=== PATIENT | female | born 2000 | race African-American/Black ===

== ENCOUNTER 2023-10-19 09:50 | Outpatient (REF) | payer MEDICAID, SELFPAY ==
[2023-10-19 15:13] LABS: Vitamin D 25-OH Total 19.2 ng/mL (>30)
== END 2023-10-19 09:51 | disposition home or self-care (01) ==
LOC: HO.CHCLDS 09:50
PROVIDERS: Visit Provider Pediatrics
DX: Z12.4 Encounter for screening for malignant neoplasm of cervix (principal); E55.9 Vitamin D deficiency, unspecified
CPT/HCPCS: 36415; 82306; 88142

== ENCOUNTER 2024-04-25 17:34 | Outpatient (REF) | payer MEDICAID, SELFPAY ==
[2024-04-25 18:27] LABS: Influenza A PCR NEGATIVE (Negative); Influenza B PCR NEGATIVE (Negative); Resp Syncy Virus RNA Qual PCR NEGATIVE (Negative); SARS COV2 PCR INHOUSE NEGATIVE (Negative)
== END 2024-04-25 17:35 | disposition home or self-care (01) ==
LOC: HO.HHCLNP 17:34
PROVIDERS: Visit Provider Pediatrics
DX: B34.9 Viral infection, unspecified (principal)
CPT/HCPCS: 0241U; 87070; 87147

== ENCOUNTER 2024-06-27 | Outpatient (REF) | payer MEDICAID, SELFPAY | END 2024-06-27 00:01 | disposition home or self-care (01) | LOC: HO.HHCLNP | PROVIDERS: Visit Provider Internal Medicine | DX: R30.0 Dysuria (principal) | CPT/HCPCS: 87086 ==

== ENCOUNTER 2024-06-27 12:52 | Emergency (ER) | payer MEDICAID, SELFPAY ==
--- NOTE | ~2024-06-27 | CT_ITS ---
EXAMINATION: CT ABDOMEN AND PELVIS WITH CONTRAST CLINICAL INFORMATION: Right lower quadrant tenderness COMPARISON: None available. TECHNIQUE: Multidetector volumetric images were obtained from the superior aspect of the liver through the pubic symphysis following administration 85 mL of Omnipaque 350 intravenous contrast. Sagittal and coronal reformatted images were obtained on the technologist's workstation. Oral contrast: No This CT examination was performed using dose optimization techniques as appropriate, variously including the following: *Automated exposure control *Adjustment of mA and/or kV according to patient size (this includes techniques or standardized protocols for targeted exams where dose is matched to indication/reason for exam; i.e. extremities or head) *Use of iterative reconstruction technique DLP: 1119 mGy-cm FINDINGS: CUSTOM BIKE BUILDER: Nonobstructive bowel pattern. LUNG BASES: Left base atelectasis. LIVER, GALLBLADDER, AND BILIARY TREE: The liver is normal in size, shape, and attenuation. No focal hepatic lesion or biliary ductal dilatation is present. The gallbladder is unremarkable with no evidence of radiopaque gallstones, gallbladder wall thickening, or obvious pericholecystic inflammatory changes. PANCREAS: Unremarkable. SPLEEN: Unremarkable. ADRENAL GLANDS: Unremarkable. KIDNEYS AND URETERS: The kidneys are normal in size, shape, and attenuation. No hydronephrosis, hydroureter, or calculi seen. No perinephric stranding. BLADDER: Totally decompressed. GASTROINTESTINAL TRACT: Small hiatal hernia with question tiny air-fluid level. Decompressed stomach. Nonobstructive bowel pattern. Unremarkable terminal ileum and appendix. No right lower quadrant inflammatory changes. No colonic pathology recognized. ABDOMINAL WALL: Moderately large fat filled umbilical hernia. LYMPH NODES: Nonspecific right lower quadrant lymph nodes. VASCULAR: Unremarkable. PELVIC VISCERA: Evaluation of the pelvis limited without oral contrast opacification of bowel loops. Ovarian cyst/follicles not excluded bilaterally. No free fluid. OSSEOUS STRUCTURES: Unremarkable. CT/CT abdomen pelvis w IV con IMPRESSION: 1. No acute intra-abdominal or pelvic pathology. 2. Moderately large fat filled umbilical hernia. Fleischner guidelines were followed. Electronically signed by: Janis Nevarez MD 06/27/2024 03:55 PM EDT
--- NOTE | ~2024-06-27 | US_ITS ---
EXAMINATION: US PELVIS CLINICAL INFORMATION: Right lower quadrant pain COMPARISON: CT abdomen and pelvis June 27, 2024 TECHNIQUE: Ultrasound of the pelvis is performed using both transabdominal and transvaginal transducers along with Doppler. Transvaginal imaging is performed due to inadequate visualization transabdominally. FINDINGS: Uterus: The uterus is retroverted and measures 6.5 x 3.4 x 3.7 cm. The double wall endometrial thickness is 4 mm. The uterus is smooth in contour and has normal myometrial echogenicity. No visible fibroid. Adnexa: Both ovaries are visualized. There is normal color flow to the adnexa. There is no ovarian torsion. There is no pelvic ascites or fluid collection. Right ovary measures 4. 2 x 2 by 3.3 cm. Volume 14.3 mm. Left ovary measures 5.2 x 3.7 x 3.9 cm. Volume 40 mm. Hemorrhagic cyst noted measuring 2.5 x 2.2 0.7 cm. US/US pelvic and transvaginal IMPRESSION: No evidence of ovarian torsion. Hemorrhagic cyst noted in the left adnexa measuring 2.5 x 2.2 x 0.7 cm. Electronically signed by: Richard Saba MD 06/27/2024 07:56 PM EDT RP
--- NOTE | ~2024-06-27 | US_ITS ---
EXAMINATION: US PELVIS CLINICAL INFORMATION: Right lower quadrant pain COMPARISON: CT abdomen and pelvis June 27, 2024 TECHNIQUE: Ultrasound of the pelvis is performed using both transabdominal and transvaginal transducers along with Doppler. Transvaginal imaging is performed due to inadequate visualization transabdominally. FINDINGS: Uterus: The uterus is retroverted and measures 6.5 x 3.4 x 3.7 cm. The double wall endometrial thickness is 4 mm. The uterus is smooth in contour and has normal myometrial echogenicity. No visible fibroid. Adnexa: Both ovaries are visualized. There is normal color flow to the adnexa. There is no ovarian torsion. There is no pelvic ascites or fluid collection. Right ovary measures 4. 2 x 2 by 3.3 cm. Volume 14.3 mm. Left ovary measures 5.2 x 3.7 x 3.9 cm. Volume 40 mm. Hemorrhagic cyst noted measuring 2.5 x 2.2 0.7 cm. US/US pelvic ovarian doppler IMPRESSION: No evidence of ovarian torsion. Hemorrhagic cyst noted in the left adnexa measuring 2.5 x 2.2 x 0.7 cm. Electronically signed by: Richard Saba MD 06/27/2024 07:56 PM EDT
--- NOTE | 2024-06-27 13:39 | ED.ABDPAIN ---
HPI - Abdominal Pain General Chief Complaint: Abdominal Pain Stated Complaint: Ruptured appendix? sent by walk in Time Seen by Provider: 06/27/24 13:48 History of Present Illness ED Provider: Jaime HPI narrative: 23 y/o F patient; without significant PMH; presents from Urgent Care with report of RLQ abdominal pain associated with nausea. She states it began as umbilical pain that moved to the RLQ. She has been experiencing it since Wednesday (06/24/2024). She denies associated: vomiting/diarrhea, fever or chills, chest pain, SOB, cough/congestion. No known sick contacts. No prior surgeries of abdomen. She has never been sexually active. Last period was 2.5 weeks ago and normal. UA performed in urgent care and unremarkable. Related Data Allergies Allergy/AdvReac Type Severity Reaction Status Date / Time Unable to Assess Allergy Verified 06/27/24 13:42 Review of Systems Review of Systems Yes all other systems are reviewed and are negative Denies Sensory deficit (Neuro) [facility] [place] Past Medical History Attestation statement: The following information was validated with the patient. Source: old records reviewed Social History Social History Smoked in Last 30 Days: No Advance Directives: No Do you have a plan to hurt others: No Plan Patient : No Physical Exam ED Vital Signs: Vital Signs - 24 hr 06/27/24 13:41 06/27/24 18:08 Temperature 98.7 F 98.4 F Pulse Rate 68 60 Respiratory Rate 18 16 Blood Pressure 125/85 112/76 Pulse Oximetry 100 99 Oxygen Delivery Method Room Air Room Air BMI result Body Mass Index 45.5 Patient is afebrile and hemodynamically stable Const General: cooperative Orientation/consciousness: patient oriented x3 HENMT Head: Yes normal to inspection and Yes atraumatic Eyes General: appearance normal, both eyes and all related structures Pupils: Equal, round and reactive pupils present Neck Neck: Yes normal visual inspection, Yes full ROM, Yes supple and No tender Chest Chest palpation & inspection: normal inspection of the chest and normal palpation of entire chest wall Resp Effort & Inspection: normal respiratory effort, able to speak in complete sentences and no respiratory distress Auscultation: clear to auscultation bilaterally Cardio Rate: regular rate Rhythm: regular rhythm Peripheral pulses: Peripheral pulses 2+ throughout GI Other: RLQ tenderness Inspection: Yes normal to inspection, No Abdominal wall edema and No distended Palpation (GI): Soft to palpation, not firm, Tenderness to palpation present (GI), no guarding and not rigid Auscultation: normal bowel sounds Back/Spine/Pelvis Back: No back tenderness Neuro General: patient oriented x3 Cranial nerves: Yes Equal, round and reactive pupils present Motor exam (neuro): 5/5 motor strength present throughout Sensory Exam: No Sensory deficit (Neuro) Course Course Course Narrative: This is a Rapid Medical Examination (RME) performed by Bridgette Tong PA-C in triage. Full HPI, ROS, assessment and treatment plan per primary provider in the Main ED. 23 yo female with no medical problems presents to the ER for evaluation of abdominal pain, sent in by the urgent care clinic to rule out appendicitis.. She reports an intense periumbilical abdominal pain that started 4 days ago, has since migrated to the right lower quadrant and is dull and aching in nature. She endorses nausea with subjective fever and chills. Last menstrual period was 2.5 weeks ago. Abd is soft in triage with tenderness to deep palpation of the RLQ. Plan: Labs, urine, CT scan to rule out appendicitis Reevaluation(s) Reevaluation #1: Patient is afebrile and hemodynamically stable. Reviewed triage work up. COVID negative. Labs reviewed. No leukocytosis. Providing 1L IVF, Zofran 4mg IV, and Tylenol 1g IV. CT Abdomen/Pelvis unremarkable. Added US Pelvis. US with no evidence of ovarian torsion. Patient is comfortable at this time. Possible MSK versus viral illness. She is tolerating PO without difficulty. Plan: Discharge to home with PCP follow up Return precautions given Medical Decision Making Lab Data 06/27/24 14:05 06/27/24 14:05 Labs: Lab Results 06/27/24 Range/Units 14:05 WBC 7.3 (4.8-10.8) X10*3/uL RBC 5.08 (4.20-5.50) X10*6/uL Hgb 13.8 (12.0-16.0) g/dl Hct 41.1 (37.0-47.0) % MCV 80.9 (80.0-98.0) fL MCH 27.2 (27.0-33.0) pg MCHC 33.6 (31.0-35.0) g/dl RDW 14.5 (11.0-16.0) % Plt Count 415 H (160-400) X10*3/uL MPV 9.1 L (9.4-12.3) fL Immature Gran % (Auto) 0.4 (0.0-0.4) % Neut % (Auto) 60.5 (45-73) % Lymph % (Auto) 29.7 (20-40) % [place] % (Auto) 7.6 (2-11) % Eos % (Auto) 1.2 (0-4) % Baso % (Auto) 0.6 (0-2) % Lymph # (Auto) 2.2 (1.2-4.9) X10*3/uL [place] # (Auto) 0.6 (0.1-1.2) X10*3/uL Eos # (Auto) 0.1 (0.0-0.4) X10*3/uL Baso # (Auto) 0.0 (0.0-0.2) X10*3/uL Abs Immat Gran (auto) 0.03 (0.00-0.03) X10*3/uL Absolute Neuts (auto) 4.4 (2.0-8.3) x10*3/uL Absolute Nucleated RBC 0.000 (0.0-0.012) X10*3/uL Nucleated RBC % (auto) 0.0 (0.0-0.2) /100WBC Sodium 139 (135-145) mmol/L Potassium 3.7 (3.3-5.1) mmol/L Chloride 108 (96-108) mmol/L Carbon Dioxide 27 (22-29) mmol/L Anion Gap 8 L (12-20) BUN 10 (9-16) mg/dL Creatinine 0.77 (0.5-1.4) mg/dL Estim Creat Clear Calc 142.4 Estimated GFR > 60 Random Glucose 90 (60-115) mg/dL Lactic Acid 0.6 (0.5-2.0) mmol/L Calcium 9.4 (8.4-10.2) mg/dL Magnesium 1.9 (1.6-2.6) mg/dL Total Bilirubin 0.7 (0.0-1.0) mg/dL Direct Bilirubin 0.2 (0.0-0.5) mg/dL AST 22 (5-31) U/L ALT 17 (0-31) U/L Alkaline Phosphatase 111 (39-117) U/L Total Protein 8.0 (6.5-8.0) g/dL Albumin 4.1 (3.5-5.0) g/dL Lipase 22 (8-78) U/L Beta HCG, Quant < 2 mIU/mL Radiology Impression Discussion of test interpretation with radiology: I have reviewed the radiologist's reading. Radiologist Impression: EXAMINATION: CT ABDOMEN AND PELVIS WITH CONTRAST CLINICAL INFORMATION: Right lower quadrant tenderness COMPARISON: None available. TECHNIQUE: Multidetector volumetric images were obtained from the superior aspect of the liver through the pubic symphysis following administration 85 mL of Omnipaque 350 intravenous contrast. Sagittal and coronal reformatted images were obtained on the technologist's workstation. Oral contrast: No This CT examination was performed using dose optimization techniques as appropriate, variously including the following: *Automated exposure control *Adjustment of mA and/or kV according to patient size (this includes techniques or standardized protocols for targeted exams where dose is matched to indication/reason for exam; i.e. extremities or head) *Use of iterative reconstruction technique DLP: 1119 mGy-cm FINDINGS: BLACK ASH BURNER OPERATOR: Nonobstructive bowel pattern. LUNG BASES: Left base atelectasis. LIVER, GALLBLADDER, AND BILIARY TREE: The liver is normal in size, shape, and attenuation. No focal hepatic lesion or biliary ductal dilatation is present. The gallbladder is unremarkable with no evidence of radiopaque gallstones, gallbladder wall thickening, or obvious pericholecystic inflammatory changes. PANCREAS: Unremarkable. SPLEEN: Unremarkable. ADRENAL GLANDS: Unremarkable. KIDNEYS AND URETERS: The kidneys are normal in size, shape, and attenuation. No hydronephrosis, hydroureter, or calculi seen. No perinephric stranding. BLADDER: Totally decompressed. GASTROINTESTINAL TRACT: Small hiatal hernia with question tiny air-fluid level. Decompressed stomach. Nonobstructive bowel pattern. Unremarkable terminal ileum and appendix. No right lower quadrant inflammatory changes. No colonic pathology recognized. ABDOMINAL WALL: Moderately large fat filled umbilical hernia. LYMPH NODES: Nonspecific right lower quadrant lymph nodes. VASCULAR: Unremarkable. PELVIC VISCERA: Evaluation of the pelvis limited without oral contrast opacification of bowel loops. Ovarian cyst/follicles not excluded bilaterally. No free fluid. OSSEOUS STRUCTURES: Unremarkable. CT/CT abdomen pelvis w IV con IMPRESSION: 1. No acute intra-abdominal or pelvic pathology. 2. Moderately large fat filled umbilical hernia. Fleischner guidelines were followed. Electronically signed by: Janis Nevarez MD 06/27/2024 03:55 PM EDT EXAMINATION: US PELVIS CLINICAL INFORMATION: Right lower quadrant pain COMPARISON: CT abdomen and pelvis June 27, 2024 TECHNIQUE: Ultrasound of the pelvis is performed using both transabdominal and transvaginal transducers along with Doppler. Transvaginal imaging is performed due to inadequate visualization transabdominally. FINDINGS: Uterus: The uterus is retroverted and measures 6.5 x 3.4 x 3.7 cm. The double wall endometrial thickness is 4 mm. The uterus is smooth in contour and has normal myometrial echogenicity. No visible fibroid. Adnexa: Both ovaries are visualized. There is normal color flow to the adnexa. There is no ovarian torsion. There is no pelvic ascites or fluid collection. Right ovary measures 4. 2 x 2 by 3.3 cm. Volume 14.3 mm. Left ovary measures 5.2 x 3.7 x 3.9 cm. Volume 40 mm. Hemorrhagic cyst noted measuring 2.5 x 2.2 0.7 cm. US/US pelvic ovarian doppler IMPRESSION: No evidence of ovarian torsion. Hemorrhagic cyst noted in the left adnexa measuring 2.5 x 2.2 x 0.7 cm. Electronically signed by: Richard Saba MD 06/27/2024 07:56 PM EDT Medications Administered Discontinued Medications Generic Name Dose Route Start Last Admin Trade Name Freq PRN Reason Stop Dose Admin Acetaminophen 1,000 mg in 100 mls @ 400 mls/hr 06/27/24 14:29 06/27/24 15:44 Ofirmev IV 06/27/24 14:43 Infused ONCE ONE Infusion Sodium Chloride 1,000 mls @ 999 mls/hr 06/27/24 14:30 06/27/24 16:00 Ns IV 06/27/24 15:30 Infused .Q1H1M ANITRA Infusion Iohexol 100 ml 06/27/24 14:49 06/27/24 14:49 Iohexol 350 Mg/Ml 100 Ml Infus..Btl IV 06/27/24 14:50 85 ml ONCE ONE Administration Ondansetron HCl 4 mg 06/27/24 14:29 06/27/24 14:52 Ondansetron Hcl 4 Mg/2 Ml Vial IVPUSH 06/27/24 14:30 4 mg ONCE ONE Administration Discharge Plan Discharge Clinical Impression: Abdominal pain Patient Disposition: Home, Self-Care Instructions: Abdominal Pain (ED) Additional Instructions: As we discussed, you were seen today for abdominal pain. Your labs, CT Abdomen/Pelvis, and US Pelvis were reassuring. Please call your PCP to make an appointment to be seen in the next 1 - 2 days for a re-evaluation and to discuss your recent ED visit. Return to the emergency department for: Worsening abdominal pain Fever Print Language: Khmer
[2024-06-27 13:41] VITALS: BP 125/85; PULSE 68; RESP 18; TEMP 37.1; O2SAT 100; BMI 45.5
--- OUTSIDE RECORDS SUMMARY | 2024-06-27 13:59 | XMS_ITS | Continuity of Care Document ---
Author Organization [facility] Address [address] [place] [address]- Care Team Providers Care Senior Accounting Clerk Name Role Phone Manuela HERNANDEZ Linda Milligan Primary Care Physician Encounter [facility] Date(s): 07/10/22 - 08/09/22 [facility] [address] [place] [id number]- Allergies, Adverse Reactions, Alerts No Known Medication Allergies Immunizations Given and Recorded Vaccine Date Status Refusal Reason influenza virus vaccine, inactivated 09/15/21 Give n influenza virus vaccine, inactivated 10/29/20 Give n influenza virus vaccine, inactivated 08/14/19 Give n influenza virus vaccine, inactivated 08/02/17 Give n influenza virus vaccine, inactivated 11/16/16 Give n influenza virus vaccine, inactivated 1 08/19/15 Gi mekhi influenza virus vaccine, inactivated 06/20/03 Bryan rded SARS-CoV-2 (COVID-19) mRNA BNT-162b2 vac 07/04/21 Recorded SARS-CoV-2 (COVID-19) mRNA BNT-162b2 vac 06/13/21 Recorded Varicella Virus Vaccine 08/14/19 Given Varicella Virus Vaccine 10/08/05 Recorded Varicella Virus Vaccine 06/20/03 Recorded Meningococcal Conjugate Vaccine 08/14/19 Given Meningococcal Conjugate Vaccine 2 05/25/16 Given Hepatitis A Pediatric Vaccine 08/14/19 Given Hepatitis A Pediatric Vaccine 04/12/14 Recorded Hepatitis A Pediatric Vaccine 06/20/03 Recorded Human Papillomavirus Vaccine 3 10/16/15 Given Gardasil (oldterm) 04/12/14 Recorded Gardasil (oldterm) 09/11/13 Recorded tetanus/diphtheria/pertussis, acel(Tdap) 09/11/13 Recorded Poliovirus Vaccine, Inactivated 01/20/07 Recorded Poliovirus Vaccine, Inactivated 02/09/06 Recorded Poliovirus Vaccine, Inactivated 12/08/05 Recorded Poliovirus Vaccine, Inactivated 10/08/05 Recorded Measles/Mumps/Rubella Virus Vaccine 01/20/07 Recor ded Measles/Mumps/Rubella Virus Vaccine 10/08/05 Recor ded diphtheria/tetanus/pertussis, acel(DTaP) 08/19/06 Recorded diphtheria/tetanus/pertussis, acel(DTaP) 02/09/06 Recorded diphtheria/tetanus/pertussis, acel(DTaP) 12/08/05 Recorded diphtheria/tetanus/pertussis, acel(DTaP) 10/08/05 Recorded hepatitis B pediatric vaccine 02/09/06 Recorded hepatitis B pediatric vaccine 12/08/05 Recorded hepatitis B pediatric vaccine 10/08/05 Recorded pneumococcal 7-valent vaccine 12/08/05 Recorded pneumococcal 7-valent vaccine 10/08/05 Recorded Haemophilus B conjugate (HbOC) vaccine 10/08/05 Re corded 1Result Comment: [08/19/2015] Ordered by Manuela 2Result Comment: [05/25/2016] ORDERED BY DR. CALRK 3Result Comment: [10/16/2015] ORDERED BY DR. CLARK Problem List Condition Confirmation Course Effective Dates Status Health St atus Informant Obese Confirmed Active [facility] Confirmed Active Social History Social History Type Response Smoking Status Never smoker; Tobacc o user in household: No entered on: 04/17/15 Sex Patient Care team information Personnel Name: Linda Clark DO Address: Address: [address] [place] [address]
--- OUTSIDE RECORDS SUMMARY | 2024-06-27 13:59 | XMS_ITS | Continuity of Care Document ---
Author Organization [facility] Address [address] [place] [address]- Care Team Providers Care Applications Instructor Name Role Phone Lisa Clark DOkasey Milligan Primary Care Physician Encounter [facility] Date(s): 05/10/23 - 05/11/[address] [address]- Discharge Disposition: A-D/C Home Attending Physician: Cady Corrales MD Admitting Physician: Cady Corrales MD Referring Physician: Not on Staff, Referring MD Allergies, Adverse Reactions, Alerts No Known Medication [...] Papillomavirus Vaccine 3 10/16/15 Given Gardasil (oldterm) 7/3/14 Recorded Gardasil (oldterm) 09/11/13 Recorded tetanus/diphtheria/pertussis, acel(Tdap) [...] Manuela 2Result Comment: [05/25/2016] ORDERED BY DR. CLARK 3Result Comment: [10/16/2015] ORDERED BY DR. CLARK Medications Ketorolac Inj 15 mg, Injection, IV Push Slowly, Once, PRN for Other, pain, STAT, 05/11/23 0:22:00 EDT Start Date: 05/11/23 Stop Date: 05/11/23 Status: Completed Vitamin D2 By Mouth, 0 Refills, Maintenance, 05/10/23 20:19:00 EDT, Partial fill upon patient request if the prescription is for a schedule II opioid drug. Start Date: 05/10/23 Status: Ordered Problem List Condition Confirmation Course Effective Dates Status Health St atus Informant Obese Confirmed Active [facility] Confirmed Active Results Orders for Microbiology Reports Name Date Group A Strep Screen and Culture 05/10/23 Microbiology Reports TEST:Group A Strep Screen and Culture STATUS:Unauthenticated BODY SITE: SOURCE:THROAT COLLECTED DATE/TIME:05/10/23 8:45 PM Group A Strep Screen and Culture SPECIMEN DESCRIPTION : THROAT SWAB SPECIAL REQUESTS : NONE DIRECT EXAM : RAPID GROUP A RESULT IS NEGATIVE, REFER TO CULTURE RESULT. REPORT STATUS : PRELIMINARY REPORT Vital Signs Most recent to oldest [Reference Range]: 1 2 3 Height 159 cm (05/11/23 4:51 AM) 159 cm (05/11/23 3:27 AM) 159 cm (05/11/23 12:07 AM) Weight 116.2 kg (05/10/23 8:18 PM) Oxygen Saturation [94-100 %] 100 % (05/11/23 4:51 AM) 99 % (05/11/23 3:27 AM) 99 % (05/10/23 11:28 PM) Pulse Rate [55-90 bpm] 83 bpm (05/11/23 4:51 AM) 88 bpm (05/11/23 3:27 AM) 97 bpm *H* (05/10/23 11:28 PM) Blood Pressure [90-138/55-84 mm Hg] 125/61mm Hg (05/11/23 4:51 AM) 123/57mm Hg (05/11/23 3:27 AM) 128/80mm Hg (05/10/23 11:28 PM) Respiratory Rate [16-30 br/min] 18 br/min (05/11/23 4:51 AM) 18 br/min (05/11/23 1:10 AM) 18 br/min (05/10/23 8:18 PM) Temperature [96.8-100.4 DegF] 97.9 DegF (05/11/23 3:27 AM) 99.7 DegF (05/11/23 12:07 AM) 99.0 DegF (05/10/23 11:28 PM) Mode of Delivery (Oxygen) Room air (05/11/23 4:51 AM) Room air (05/11/23 3:27 AM) Room air (05/10/23 11:28 PM) Blood pressure sites Arm, left (05/11/23 4:51 AM) Arm, left (05/11/23 3:27 AM) Arm, left (05/10/23 11:28 PM) Temperature Route Temporal (05/11/23 3:27 AM) Oral (05/11/23 12:07 AM) Oral (05/10/23 11:28 PM) Dry Weight 116.2 kg (05/10/23 8:18 PM) Weight Obtained Via Standing scale (05/10/23 8:18 PM) Dry Weight Obtained Via Standing scale (05/10/23 8:18 PM) Social History Social History Type Response Smoking Status Never smoker; Tobacc o user in household: No entered on: 04/17/15 Sex Note * Savanna ORTIZ, Cady Neely: PERFORM Event Display: Patient Education Leaflets Authored Date: [id number] Viral Syndrome (Adult) ?? [id number] Viral Syndrome (Adult) A viral illness may cause many symptoms such as fever. Other symptoms depend on the part of the body that the virus affects. If it settles in your nose, throat, and lungs, it may cause cough, sore throat, congestion, runny nose, headache, earache and other ear symptoms, or shortness of breath. If it settles in your stomach and intestinal tract, it may cause nausea, vomiting, cramping, and diarrhea. Sometimes it causes generalized symptoms like aching all over, feeling tired, loss of energy, or loss of appetite. A viral illness often lasts anywhere from a few days to a few weeks. But sometimes it lasts longer.In some cases, a more serious infection can look like a viral syndrome in the first few days of theillness. You may need another exam and additional tests to know the difference. Watch for the warning signs listed below for when to get medical advice. Home care Follow these guidelines for taking care of yourself at home: ??? If symptoms are severe, rest at home for the first 2 to 3 days. ??? Stay away from cigarette smoke - both your smoke and the smoke from others. ??? You may use [id number]??acetaminophen or ibuprofen for fever, muscle aching, and headache, unless another medicine was prescribed for this. Antibiotics aren't used to treat viral infections. If you have chronic liver or kidney disease or ever had a stomach ulcer or gastrointestinal bleeding, talk with your healthcare provider before using these medicines. No one who is younger than 18 and ill with a fever should take aspirin. It may cause severe disease or . ??? Your appetite may be poor, so a light diet is fine. Prevent dehydration by drinking 8 to 12, 8-ounce glassesof fluids each day. This may include water; orange juice; lemonade; apple, grape, and cranberry juice; clear fruit drinks; electrolyte replacement and sports drinks; and decaffeinated teas and coffee. If you've been diagnosed with a kidney disease, ask your healthcare provider how much and what types of fluids you should drink to prevent dehydration. If you have kidney disease, drinking too much fluid can cause it build up in your body and be dangerous to your health. ??? Gexy-cbp-gzskxmx remedies won't shorten the length of the illness. But they may be helpful for symptoms such as cough, sore throat, nasal and sinus congestion, or diarrhea. Don't use decongestants if you have high blood pressure. ?? Follow-up care Follow up with your healthcare provider if you don't get better over the next week. ?? Call 911 Call 911 if any of these occur: ??? Convulsion ??? Feeling weak, dizzy, or like you are going to faint ??? Chest pain, or more than mild shortness of breath ?? When to get medical advice Call your healthcare provider right away if any of these occur: ??? Cough with lots of colored sputum (mucus) or blood in your sputum ??? Chest pain, shortness of breath, wheezing, or trouble breathing ??? Severe headache; face, neck, or ear pain ??? Severe, constant pain in the lower right side ofyour belly (abdominal) ??? Continued vomiting (can???t keep liquids down) ??? Frequent diarrhea (more than 5 times a day), or blood (red or black color) or mucus in diarrhea ??? Feeling weak, dizzy, or like you are going to faint ??? Extreme thirst ??? Fever of 100.4??F (38??C) or higher, or as directed by your provider ?? Last Reviewed Date: 2021 ?? [id number] [employer]. All rights reserved. This information is not intended as a substitute for professional medical care. Always follow your healthcare professional's instructions. ?? Patient Care team information Care Team Personnel Name: Linda Clark DO Position: S Physician - Primary Care Member Role: PCP Address: Address: [address] [place] [address] [place] [address]- [place] Name: Savanna ORTIZ, Cady Neely Position: [facility] ED Medicine MD Member Role: ED Attending Physician Address: Address: [address] [place] [phone]- [place] Name: Nina Bradley Position: [facility] ED TA [facility] Member Role: Patient Care Provider Name: Kyle Hays RN Position: [facility] ED RN W/OE and Tasks Member Role: Patient Care Provider Care Team Related Persons Name: DAVIDA TIM Address: [address] [address]
--- OUTSIDE RECORDS SUMMARY | 2024-06-27 13:59 | XMS_ITS | Continuity of Care Document ---
Author Organization [facility] Address [address] [place] [address]- Care Team Providers Care Regional Trainer Name Role Phone Linda Clark DO Primary Care Physician Encounter [facility] Date(s): 01/02/21 - 01/09/21 [facility] [address] [place], [place] [address] Encounter Diagnosis Vomiting(Discharge Diagnosis) - 01/02/21 Right upper quadrant pain(Discharge Diagnosis) - 01/02/21 Attending Physician: Maykel Kurtz MD Referring Physician: Linda Clark DO Allergies, Adverse Reactions, Alerts No Known Medication Allergies Immunizations Given and Recorded Vaccine Date Status Refusal Reason influenza virus vaccine, inactivated 10/29/20 Give n influenza virus vaccine, inactivated 08/14/19 Give n influenza virus vaccine, inactivated 08/02/17 Give n influenza virus vaccine, inactivated 11/16/16 Give n influenza virus vaccine, inactivated 1 08/19/15 Gi mekhi influenza virus vaccine, inactivated 06/20/03 Bryan rded Varicella Virus Vaccine 08/14/19 Given Varicella Virus [...] Comment: [10/16/2015] ORDERED BY DR. CLARK Medications multivitamin Multiple Vitamins oral tablet 1 tablet, By Mouth, Daily, women's MVI with Iron, # 90 tablet, 6 Refills, Maintenance, 10/29/20 16:52:00 EST, Tablet, [id number], Partial fill upon patient request if the prescription is for a schedule II opioid drug., 1 tablet By Dede... Start Date: 10/29/20 Status: Ordered Zofran 8 mg oral tablet 1 tablet = 8 mg, By Mouth, Every 8 hours, PRN Nausea & Vomiting, # 10 tablet, 0 Refills, Maintenance, 01/02/21 16:26:00 EDT, Tablet, [id number], Partial fill upon patient requestif the prescription is for a schedule II opioid drug.,... Start Date: 01/02/21 Status: Ordered Problem List Condition Effective Dates Status Health Status Inform ant Obese(Confirmed) Active [facility](Confirmed) Active Diagnosis Diagnosis Type Effective Dates Health Status Cl inical Service Informant Vomiting Discharge Diagnosis 01/02/21 Right upper quadrant pain Discharge Diagnosis 01/02/21 Vital Signs Most recent to oldest [Reference Range]: 1 Height 159 cm (01/02/21 4:07 PM) Weight 108.0 kg (01/02/21 4:07 PM) Oxygen Saturation [94-100 %] 100 % (01/02/21 4:07 PM) Pulse Rate [55-90 bpm] 62 bpm (01/02/21 4:07 PM) Body Mass Index [18.5-24.99] 42.72 *>HHI* (01/02/21 4:07 PM) Blood Pressure [71-110/30-71 mm Hg] 112/ 77mm Hg *H* (01/02/21 4:07 PM) Respiratory Rate [16-30 br/min] 16 br/mi n (01/02/21 4:07 PM) Temperature [96.8-100.4 DegF] 98.4 DegF (01/02/21 4:07 PM) Mode of Delivery (Oxygen) Room air (01/02/21 4:07 PM) Blood pressure sites Arm, right (01/02/21 4:07 PM) Temperature Route Temporal (01/02/21 4:07 PM) Dry Weight 108.0 kg (01/02/21 4:07 PM) Weight Obtained Via Standing scale (01/02/21 4:07 PM) Dry Weight Obtained Via Standing scale (01/02/21 4:07 PM) Social History Social History Type Response Smoking Status Never smoker; Tobacc o user in household: No entered on: 04/17/15 Sex
--- OUTSIDE RECORDS SUMMARY | 2024-06-27 13:59 | XMS_ITS | Continuity of Care Document ---
Author Organization [facility] Address [address] [place] [address]- Care Team Providers Care Heel Nailing Machine Operator Name Role Phone [place] Linda HERNANDEZ Primary Care Physician Encounter [facility] [place] Date(s): 09/14/22 - 10/14/[address] [address]- Allergies, Adverse Reactions, Alerts No Known Medication [...] on: 04/17/15 Sex Patient Care team information Care Team Personnel Name: Linda Clark DO Position: [facility] Primary Care Physician Member Role: PCP Address: Address: [address] [place] [address]- Care Team Related Persons Name: DAVIDA TIM Address: home [address] [place] [address]
--- OUTSIDE RECORDS SUMMARY | 2024-06-27 13:59 | XMS_ITS | Continuity of Care Document ---
Author Organization [facility] Address [address] [place] [address]- Care Team Providers Care Instructor Of Sociology Name Role Phone [place] Linda HERNANDEZ Primary Care Physician Encounter [facility] [place] Date(s): 02/05/21 - 03/07/21 [facility] [address] [place], [place] [address] Attending Physician: Dung Torrez Admitting Physician: Dung Torrez Referring Physician: AdmtrDung Allergies, Adverse Reactions, Alerts No Known Medication [...] 6 Refills, Maintenance, 10/29/20 16:52:00 EST, Tablet, [facility][id number], Partial fill upon patient request if the prescription is for a schedule II opioid drug., 1 tablet By Dede... Start Date: 10/29/20 Status: Ordered Zofran 8 mg oral tablet 1 tablet = 8 mg, By Mouth, Every 8 hours, PRN Nausea & Vomiting, # 10 tablet, 0 Refills, Maintenance, 01/02/21 16:26:00 EDT, Tablet, [facility] #[id number], Partial fill upon patient requestif the prescription is for a schedule II opioid drug.,... Start Date: 01/02/21 Status: Ordered Problem List Condition Effective Dates Status Health Status Inform ant Obese(Confirmed) Active [facility]- [facility](Confirmed) Active Social History Social History Type Response Smoking Status Never smoker; Tobacc o user in household: No entered on: 04/17/15 Sex
--- OUTSIDE RECORDS SUMMARY | 2024-06-27 14:00 | XMS_ITS | Continuity of Care Document ---
Author Organization [facility] Address [address] [place] [address]- Care Team Providers Care Audio Visual Coordinator Name Role Phone Manuela HERNANDEZ Linda Milligan Primary Care Physician Encounter [facility] Date(s): 05/24/23 - 06/23/[address] [address] Attending Physician: Dung Torrez Admitting Physician: AdmtrDung Referring Physician: Admtr, Ar8 Allergies, Adverse Reactions, Alerts No Known Medication [...] Comment: [10/16/2015] ORDERED BY DR. CLARK Medications Vitamin D2 By Mouth, 0 Refills, Maintenance, [...] Primary Care Member Role: PCP Address: Address: [address] [place] [address]- Care Team Related Persons Name: DAVIDA TIM Address: home [address] [place] [address]
--- OUTSIDE RECORDS SUMMARY | 2024-06-27 14:00 | XMS_ITS | Continuity of Care Document ---
Author Organization [facility] Address Unknown Care Team Providers Care Retail Sales Manager Name Role Phone Linda Roy DO Primary Care Physician Encounter [facility] [place] Date(s): 09/01/21 - 10/01/21 [facility] Allergies, Adverse Reactions, Alerts No Known Medication [...] Manuela 2Result Comment: [05/25/2016] ORDERED BY DR. ROY 3Result Comment: [10/16/2015] ORDERED BY DR. ROY Medications multivitamin Multiple Vitamins oral tablet 1 tablet, By Mouth, Daily, women's MVI with Iron, # 90 tablet, 6 Refills, Maintenance, 10/29/20 16:52:00 EST, Tablet, [facility] #[id number], Partial fill upon patient request if the prescription is for a schedule II opioid drug., 1 tablet By Dede... Start Date: 10/29/20 Status: Ordered Zofran 8 mg oral tablet 1 tablet = 8 mg, By Mouth, Every 8 hours, PRN Nausea & Vomiting, # 10 tablet, 0 Refills, Maintenance, 01/02/21 16:26:00 EDT, Tablet, [facility] #[id number], Partial fill upon patient requestif the prescription [...]
--- OUTSIDE RECORDS SUMMARY | 2024-06-27 14:00 | XMS_ITS | Continuity of Care Document ---
Author Organization [facility] Address [address] [place] [address]- Care Team Providers Care Fitness Management Director Name Role Phone Linda Roy DO Primary Care Physician Encounter [facility] [place] Date(s): 09/21/22 - 11/20/22 [facility] [address]- Attending Physician: Linda Roy DO Admitting Physician: Linda Roy DO Allergies, Adverse Reactions, Alerts No Known [...] 3Result Comment: [10/16/2015] ORDERED BY DR. ROY Problem List Condition Confirmation Course Effective Dates Status Health St [facility] Informant Obese Confirmed Active [facility]- [facility] Confirmed Active Social History Social History Type Response Smoking Status Never smoker; Tobacc o user in household: No entered on: 04/17/15 Sex Patient Care team information Care Team Personnel Name: Linda Roy DO Position: S Primary Care Physician Member Role: PCP Address: Address: [address] [place] [address]- Care Team Related Persons Name: DAVIDA TIM Address: home [address] [place] [address]
--- OUTSIDE RECORDS SUMMARY | 2024-06-27 14:00 | XMS_ITS | Continuity of Care Document ---
Author Organization [facility] Address [address] [place] [address]- Care Team Providers Care Metal Molder Name Role Phone [place] DO, Linda Milligan Primary Care Physician Encounter [facility] Date(s): 07/13/22 - 08/12/22 [facility] [address] [place] [address]- Allergies, Adverse Reactions, Alerts No Known Medication [...] Personnel Name: Linda Clark DO Address: Address: [address] [place] [address]
--- OUTSIDE RECORDS SUMMARY | 2024-06-27 14:00 | XMS_ITS | Continuity of Care Document ---
Author Organization [facility] Address [address] [place] [address]- Care Team Providers Care Interlocking Tower Operator Name Role Phone Linda Clark DO Primary Care Physician Encounter [facility] [place] Date(s): 10/15/21 - 10/22/21 [facility] [address] [place] [address]- Encounter Diagnosis Contusion of left side of back(Discharge Diagnosis) - 10/15/21 Radicular syndrome of left leg(Discharge Diagnosis) - 10/15/21 Attending Physician: Maykel Kurtz MD Referring Physician: [...] tablet, 6 Refills, Maintenance, 10/29/20 16:52:00 EST, [facility] #[id number], Partial fill upon patient request if the prescription is for a schedule II opioid drug., 1 tablet By Dede... Start Date: 10/29/20 Status: Ordered naproxen 500 mg oral tablet 1 tablet = 500 mg, By Mouth, 2 times a day, PRN Pain , Moderate, for 14 days, with food, # 30 tablet, 0 Refills, Acute 10/29/21 13:30:00 EST, 10/15/21 13:30:00 EST, TabletDone In :[facility] #[id number], Partial fill upon patient request if the prescrip... Start Date: 10/15/21 Stop Date: 10/29/21 Status: Ordered Zofran 8 mg oral tablet 1 tablet = 8 mg, By Mouth, Every 8 hours, PRN Nausea & Vomiting, # 10 tablet, 0 Refills, Maintenance, 01/02/21 16:26:00 EDT, Tablet, [facility] #[id number], Partial fill upon patient requestif the prescription is for a schedule II opioid drug.,... Start Date: 01/02/21 Status: Ordered Problem List Condition Effective Dates Status Health Status Inform ant Obese(Confirmed) Active [facility]- [facility](Confirmed) Active Diagnosis Diagnosis Type Effective Dates Health Status Cl inical Service Informant Contusion of left side of back Discharge Diagnosis 10/15/21 Radicular syndrome of left leg Discharge Diagnosis 10/15/21 Vital Signs Most recent to oldest [Reference Range]: 1 Height 159 cm (10/15/21 1:15 PM) Oxygen Saturation [94-100 %] 100 % (10/15/21 1:15 PM) Pulse Rate [55-90 bpm] 89 bpm (10/15/21 1:15 PM) Blood Pressure [90-138/55-84 mm Hg] 111/ 72mm Hg (10/15/21 1:15 PM) Temperature [96.8-100.4 DegF] 98.7 DegF (10/15/21 1:15 PM) Mode of Delivery (Oxygen) Room air (10/15/21 1:15 PM) Blood pressure sites Arm, right (10/15/21 1:15 PM) Temperature Route Temporal (10/15/21 1:15 PM) Social History Social History Type Response Smoking Status Never smoker; Tobacc o user in household: No entered on: 04/17/15 Sex
--- OUTSIDE RECORDS SUMMARY | 2024-06-27 14:00 | XMS_ITS | Continuity of Care Document ---
Author Organization [facility] Address [address] [place] [address]- Care Team Providers Care Edger Operator Name Role Phone Linda Roy DO Primary Care Physician Encounter [facility] [place] Date(s): 09/09/22 - 10/09/22 [facility] [place] [address]- [place] Allergies, Adverse Reactions, Alerts No Known Medication [...] Team Personnel Name: Linda Roy DO Position: [facility] Primary Care Physician Member Role: PCP Address: Address: [address] [place] [address]- Care Team Related Persons Name: DAVIDA TIM Address: home [address] [place] [address]
--- OUTSIDE RECORDS SUMMARY | 2024-06-27 14:00 | XMS_ITS | Continuity of Care Document ---
Author Organization [facility] Address [address] [place] [address]- Care Team Providers Care Wafer Production Lead Worker Name Role Phone Linda Roy DO Primary Care Physician En[place] [facility] [place] [id number] Date(s): 10/21/22 - 11/20/22 [facility] [address]- Attending Physician: Dung Torrez Admitting Physician: Dung [...] No entered on: 04/17/15 Sex Note * Event Display: Non BH Lab Results Authored Date: * Event Display: Non BH Lab Results Authored Date: Patient Care team information Care Team Personnel Name: Linda Roy DO Position: [facility] Primary Care Physician Member Role: PCP Address: Address: [address] [place] [address]- Care Team Related Persons Name: DAVIDA TIM Address: home [address] [place] [address]
--- OUTSIDE RECORDS SUMMARY | 2024-06-27 14:00 | XMS_ITS | Continuity of Care Document ---
Author Organization [facility] Address Unknown Care Team Providers Care Parts Data Writer Name Role Phone Linda Roy DO Primary Care Physician Encounter [facility] [place] Date(s): 09/15/21 - 10/15/21 [facility] Attending Physician: Dung Torrez Admitting Physician: Dung Torrez Referring Physician: Dung Torrez Allergies, Adverse Reactions, Alerts No Known Medication [...] 6 Refills, Maintenance, 10/29/20 16:52:00 EST, Tablet, [facility] #[id number], Partial fill upon patient request if the prescription is for a schedule II opioid drug., 1 tablet By Dede... Start Date: 10/29/20 Status: Ordered naproxen 500 mg oral tablet 1 tablet = 500 mg, By Mouth, 2 times a day, PRN Pain , Moderate, for 14 days, with food, # 30 tablet, 0 Refills, Acute 10/29/21 13:30:00 EST, 10/15/21 13:30:00 EST, Tablet, [facility] #[id number], Partial fill upon patient request if the prescrip... Start Date: 10/15/21 Stop Date: 10/29/21 Status: Ordered Zofran 8 mg oral tablet 1 tablet = 8 mg, By Mouth, Every 8 hours, PRN Nausea & Vomiting, # 10 tablet, 0 Refills, Maintenance, 01/02/21 16:26:00 EDT, Tablet, [facility][id number], Partial fill upon patient requestif the prescription [...]
--- OUTSIDE RECORDS SUMMARY | 2024-06-27 14:00 | XMS_ITS | Continuity of Care Document ---
Author Organization [facility] Address [address] [place] [address]- Care Team Providers Care Packager Head Name Role Phone Linda Roy DO Primary Care Physician Encounter [facility] [place] Date(s): 09/09/22 - 10/21/22 [facility] [address]- Attending Physician: Linda Roy DO Admitting Physician: [...] Care Physician Member Role: PCP Address: Address: [address] [place] [address]- Care Team Related Persons Name: DAVIDA TIM Address: home [address] [place] [address]
--- OUTSIDE RECORDS SUMMARY | 2024-06-27 14:00 | XMS_ITS | Continuity of Care Document ---
Author Organization [facility] Address [address] [place] [address]- Care Team Providers Care Puncher And Fastener Name Role Phone Linda Roy DO Primary Care Physician Encounter [facility] Date(s): 10/27/19 - 12/31/[address] [address]- [facility] Attending Physician: Not on Staff, Attending MD Allergies, Adverse Reactions, Alerts No Known Medication Allergies Immunizations Given and Recorded Vaccine Date Status Refusal Reason Varicella Virus Vaccine 08/14/19 Given Varicella Virus Vaccine 10/08/05 Recorded Varicella Virus Vaccine 06/20/03 Recorded Meningococcal Conjugate Vaccine 08/14/19 Given Meningococcal Conjugate Vaccine 1 05/25/16 Given influenza virus vaccine, inactivated 08/14/19 Give n influenza virus vaccine, inactivated 08/02/17 Give n influenza virus vaccine, inactivated 11/16/16 Give n influenza virus vaccine, inactivated 2 08/19/15 Gi mekhi influenza virus vaccine, inactivated 06/20/03 Bryan rded Hepatitis A Pediatric Vaccine 08/14/19 Given Hepatitis [...] (HbOC) vaccine 10/08/05 Re corded 1Result Comment: [05/25/2016] ORDERED BY DR. ROY 2Result Comment: [08/19/2015] Ordered by Manuela 3Result Comment: [10/16/2015] ORDERED BY DR. ROY Medications fluoride 1 mg oral tablet, chewable 1 mg, 1, tablet, By Mouth, Daily at bedtime, # 90 tablet, Refills 4, Tot. Refills 4, Maintenance, 05/25/16 9:16:40, Route to Pharmacy Electronically, [id number], [facility] [id number] Start Date: 05/25/16 Status: Ordered multivitamin Multiple Vitamins oral tablet 1 tablet, By Mouth, Daily, # 90 tablet, 3 Refills, Maintenance, 05/25/16 9:17:30, Tablet, Women's MVI, 1 tablet By Mouth Daily Start Date: 05/25/16 Status: Ordered Problem List Condition Effective Dates Status Health Status Inform ant Obese(Confirmed) Active [facility]- [facility](Confirmed) Active Social History Social History Type Response Smoking Status Never smoker; Tobacc o user in household: No entered on: 04/17/15 Sex
--- OUTSIDE RECORDS SUMMARY | 2024-06-27 14:00 | XMS_ITS | Continuity of Care Document ---
Author Organization [facility] Address [address] [place] [address]- Care Team Providers Care Cad Drafter Name Role Phone Linda Clark DO Primary Care Physician Encounter [facility] [place] Date(s): 11/21/19 - 12/01/19 [facility] [place] [address] [place] [address] [facility] Attending Physician: AdmDung hilton Admitting Physician: AdmtrDung Referring Physician: Admtr, Ar8 [...] corded 1Result Comment: [05/25/2016] ORDERED BY DR. CLARK 2Result Comment: [08/19/2015] Ordered by Manuela 3Result Comment: [10/16/2015] ORDERED BY DR. CLARK Medications fluoride 1 mg oral tablet, chewable 1 mg, 1, tablet, By Mouth, Daily at bedtime, # 90 tablet, Refills 4, Tot. Refills 4, Maintenance, 05/25/16 9:16:40, Route to Pharmacy Electronically, [id number], [facility] [id number] Start Date: 05/25/16 Status: Ordered multivitamin Multiple [...]
--- OUTSIDE RECORDS SUMMARY | 2024-06-27 14:00 | XMS_ITS | Continuity of Care Document ---
Author Organization [facility] Address [address] [place] [address]- Care Team Providers Care Garbage Collection Supervisor Name Role Phone Linda Roy DO Primary Care Physician [place] [facility] [place] Date(s): 05/11/22 - 06/10/22 [facility] [address] [place] [id number] Allergies, Adverse Reactions, Alerts No Known Medication [...] 6 Refills, Maintenance, 10/29/20 16:52:00 EST, Tablet, [facility] #[id number], Partial fill upon patient request if the prescription is for a schedule II opioid drug., 1 tablet By Dede... Start Date: 10/29/20 Status: Ordered Zofran 8 mg oral tablet 1 tablet = 8 mg, By Mouth, Every 8 hours, PRN Nausea & Vomiting, # 10 tablet, 0 Refills, Maintenance, 01/02/21 16:26:00 EDT, Tablet, [facility] #[id number], Partial fill upon patient requestif the prescription is for a schedule II opioid drug.,... Start Date: 01/02/21 Status: Ordered Problem List Condition Effective Dates Status Health Status Inform ant Obese(Confirmed) Active [facility]- [facility](Confirmed) Active Social History Social History Type Response Smoking Status Never smoker; Tobacc o user in household: No entered on: 04/17/15 Sex Care Team Personnel Name: Linda Roy DO Address: [address] [place] [address], [place] [address]
--- OUTSIDE RECORDS SUMMARY | 2024-06-27 14:00 | XMS_ITS | Continuity of Care Document ---
Author Organization [facility] Address [address] [place] [address]- Care Team Providers Care Machine Staker Name Role Phone Linda Clark DO Primary Care Physician Encounter [facility] Date(s): 08/27/20 - 09/26/[address] [address]- Attending Physician: Dung Torrez Admitting Physician: AdmDung hilton Referring Physician: Admtr, Ar8 Allergies, Adverse Reactions, [...] Maintenance, 05/25/16 9:16:40, Route to Pharmacy Electronically, [id number], [facility] [id number] Start Date: 05/25/16 Status: Ordered multivitamin Multiple [...]
--- OUTSIDE RECORDS SUMMARY | 2024-06-27 14:00 | XMS_ITS | Continuity of Care Document ---
Author Organization [facility] Address [address] [place] [address]- Care Team Providers Care Rehab Aid Name Role Phone Fela Ballard MD Primary Care Physician Encounter [facility] Date(s): 11/28/23 - 11/29/[address] [address]- Encounter Diagnosis Costochondritis(Final) - 11/28/23 Viral syndrome(Final) - 11/28/23 Discharge Disposition: A-D/C Home Attending Physician: Frances Davidson DO Admitting Physician: Frances Davidson DO Referring Physician: Not on Staff, Referring MD [...] Vaccine 06/20/03 Recorded Human Papillomavirus Vaccine 3 1/6/16 Given Gardasil (oldterm) 04/12/14 Recorded Gardasil (oldterm) [...] Comment: [10/16/2015] ORDERED BY DR. CLARK Medications MorPHINE Inj 4 mg, Injection, IV Push Slowly, Once, STAT, 11/28/23 22:44:00 EST, Stop date 11/28/23 22:44:00 EST Start Date: 11/28/23 Stop Date: 11/28/23 Status: Completed ondansetron 4 mg oral tablet, disintegrating 1 tablet = 4 mg, By Mouth, Every 8 hours, PRN as needed for nausea/vomiting, for 5 days, # 15 tablet, 0 Refills, Acute 12/03/23 23:43:00 EST, 11/28/23 23:43:00 EST, DIS Tablet, [facility] #[id number], Partial fill upon patient request if the pres... Start Date: 11/28/23 Stop Date: 12/03/23 Status: Ordered Vitamin D2 By Mouth, 0 Refills, Maintenance, 05/10/23 20:19:00 EDT, Partial fill upon patient request if the prescription is for a schedule II opioid drug. Start Date: 05/10/23 Status: Ordered Problem List Condition Confirmation Course Effective Dates Status Health St atus Informant Obese Confirmed Active [facility] Confirmed Active Results Radiology Reports * Exam Date Time Procedure Performing Provider Status 11/28/23 10:07 PM Chest Portable Juan Mckeon; Au th (Verified) Notes: (Chest Portable) Reason For Exam: Shortness of Breath RESULT: Chest Portable Chest Portable Hx of Present Illness: Not feeling well since Wednesday. Lightheaded, chest pressure, abd pain and vomiting today, mid abd.; Reason: Shortness of Breath; Clinical Question(s): Pneumonia COMPARISON: 07/13/2022 FINDINGS: LINES AND TUBES: None. LUNGS AND PLEURA: Clear lungs. Normal pulmonary vascularity. No pleural effusion. No pneumothorax. HEART, MEDIASTINUM AND LEXIE: Heart is normal in size. Normal mediastinal and hilar contour. BONES AND SOFT TISSUES: No acute abnormality. IMPRESSION: No acute abnormality. WSN: [id number] Ordering Physician: Frances Davidson Dictated By: Rafy Turner MD Dictated Date/Time: 11/28/23 10:15 p Reviewed By: Rafy Turner MD Signed By: Rafy Turner MD Signed Date/Time: 11/28/23 10:15 pm Transcribed By: MARCUS Transcribed Date/Time: 11/28/23 10:15 pm Vital Signs Most recent to oldest [Reference Range]: 1 2 3 Height 160 cm (11/28/23 10:46 PM) 160 cm (11/28/23 10:26 PM) 160 cm (11/28/23 9:53 PM) Weight 118.5 kg (11/28/23 8:06 PM) Oxygen Saturation [94-100 %] 100 % (11/28/23 10:46 PM) 100 % (11/28/23 10:26 PM) 100 % (11/28/23 9:53 PM) Pulse Rate [55-90 bpm] 61 bpm (11/28/23 10:46 PM) 69 bpm (11/28/23 10:26 PM) 57 bpm (11/28/23 9:53 PM) Blood Pressure [90-138/55-84 mm Hg] 129/62mm Hg (11/28/23 10:46 PM) 125/75mm Hg (11/28/23 10:26 PM) 133/79mm Hg (11/28/23 9:53 PM) Respiratory Rate [16-30 br/min] 20 br/min (11/28/23 10:46 PM) 16 br/min (11/28/23 10:46 PM) 21 br/min (11/28/23 10:26 PM) Temperature [96.8-100.4 DegF] 96.7 DegF *L* (11/28/23 8:06 PM) Mode of Delivery (Oxygen) Room air (11/28/23 10:46 PM) Room air (11/28/23 10:26 PM) Room air (11/28/23 9:53 PM) Blood pressure sites Arm, left (11/28/23 10:46 PM) Arm, left (11/28/23 10:26 PM) Arm, left (11/28/23 9:53 PM) Temperature Route Temporal (11/28/23 8:06 PM) Dry Weight 118.5 kg (11/28/23 8:06 PM) Weight Obtained Via Standing scale (11/28/23 8:06 PM) Dry Weight Obtained Via Standing scale (11/28/23 8:06 PM) Social History Social History Type Response Smoking Status Never smoker; Tobacc o user in household: No entered on: 04/17/15 Sex EKG study * Event Display: ECG 12-Lead Authored Date: Please click on pdf link to open report * Event Display: ECG 12-Lead Authored Date: Ventricular Rate: 61 BPM Atrial Rate: 61 BPM P-R Interval: 150 ms QRS Duration: 86 ms Q-T Interval: 372 ms QTC Calculation(Bazett): 374 ms P [place]: 16 degrees R [place]: 71 degrees T [place]: 65 degrees Sinus rhythm with marked sinus arrhythmia Otherwise normal ECG No previous ECGs available Confirmed by CLEMENTE BRADLEY MD ([id number]) on 11/29/2023 10:09:47 PM [place]: CLEMENTE BRADLEY MD Note * Frances Davidson DO: PERFORM, SIGN, VERIFY Event Display: Patient Education Handout Authored Date: [id number] * Stuart HERNANDEZ Frances Diandra: PERFORM Event Display: Patient Education Leaflets Authored Date: [id number] Viral Syndrome (Adult) ?? [id number] Viral Syndrome (Adult) A viral illness may [...] smoke from others. ??? You may use mrxy-jbj-vxzmtgr??acetaminophen or ibuprofen for fever, muscle aching, and [...] and be dangerous to your health. ??? Wems-gjv-dqdxhvr remedies won't shorten the length of the [...] provider ?? Last Reviewed Date: 2021 ?? [id number] [employer]. All rights reserved. This information is not intended as a substitute for professional medical care. Always follow your healthcare professional's instructions. ?? * Frances Davidson DO: PERFORM Event Display: Patient Education Leaflets Authored Date: [id number] Chest Wall Pain: Costochondritis ?? [id number] Chest Wall Pain: Costochondritis The chest pain that you have had today is caused by costochondritis. This condition is caused by aninflammation of the cartilage joining your ribs to your breastbone. It's not caused by heart or lung problems. Your healthcare team has made sure that the chest pain you feel is not from a life threatening cause of chest pain such as heart attack, collapsed lung, blood clot in the lung, tear in theaorta, or esophageal rupture. The inflammation may have been brought on by a blow to the chest, lifting heavy objects, intense exercise, or an illness that made you cough and sneeze a lot. It??often occurs??during times of emotional stress.??It can be painful, but it's not dangerous. It usually goes away in 1 to 2 weeks. But it may happen again. Rarely, a more serious condition may cause symptomssimilar to costochondritis. That???s why it???s important to watch for the warning signs listed below. Home care Follow these guidelines when caring for yourself at home: ??? If you feel that emotional stress is a cause of your condition, try to figure out the sources of that stress. It may not be obvious. Learn ways to deal with the stress in your life. This can include regular exercise, muscle relaxation, meditation, or simply taking time out for yourself. ??? You may use acetaminophen, ibuprofen, or naproxen to control pain, unless another pain medicine was prescribed. If you have liver or kidney disease or ever had a stomach ulcer, talk with your healthcare provider before using these medicines. ???You can also help ease pain by using a hot, wet compress or heating pad. Use this with or without amedicated skin cream that helps relieves pain. ??? Do stretching exercise as advised by your provider. Typically rest is beneficial for the first few days. Avoid strenuous activity that worsens the pain. ??? Take any prescribed medicines as directed. ?? Follow-up care Follow up with your healthcare provider, or as advised. Call 911 Call 911 if any of these occur: ??? A change in the type of pain which feels different, becomes more serious, lasts longer, or spreads into your shoulder, arm, neck, jaw, or back ??? Fainting ??? Shortness of breath or trouble breathing ?? When to get medical advice Call your healthcare provider right away if any of these occur: ??? Pain gets worse when you breathe ??? Weakness or dizziness ??? Cough with dark-colored sputum (phlegm) or blood ??? Fever of 100.4??F (38??C) or higher, or as advised by your provider ?? Last Reviewed Date: 2021 ?? [id number] [employer]. All rights reserved. This information is not intended as a substitute for professional medical care. Always follow your healthcare professional's instructions. ?? Patient Care team information Care Team Personnel Name: Fela Ballard MD Position: S Resident Member Role: PCP Address: Address: [address] [place] [address]- Care Team Related Persons Name: DAVIDA TIM Address: [place] [address]
--- OUTSIDE RECORDS SUMMARY | 2024-06-27 14:00 | XMS_ITS | Continuity of Care Document ---
Author Organization [facility] Address [address] [place] [address]- Care Team Providers Care Ceramic Saw Tender Name Role Phone Linda Clark DO Primary Care Physician Encounter [facility] Date(s): 01/02/21 - 02/01/21 [facility] [address] [place], [place] [address] Attending Physician: Dung Torrez Admitting Physician: AdmDung hilton Referring Physician: AdmtrDung Allergies, Adverse Reactions, Alerts [...] 6 Refills, Maintenance, 10/29/20 16:52:00 EST, Tablet, [facility] #[id number], Partial fill upon patient request if the prescription is for a schedule II opioid drug., 1 tablet By Dede... Start Date: 10/29/20 Status: Ordered Zofran 8 mg oral tablet 1 tablet = 8 mg, By Mouth, Every 8 hours, PRN Nausea & Vomiting, # 10 tablet, 0 Refills, Maintenance, 01/02/21 16:26:00 EDT, Tablet, [facility] #[id number], Partial fill upon patient requestif the prescription [...]
--- OUTSIDE RECORDS SUMMARY | 2024-06-27 14:00 | XMS_ITS | Continuity of Care Document ---
Author Organization [facility] Address Unknown Care Team Providers Care Signalling And Communications Engineer Name Role Phone iLnda Roy DO Primary Care Physician Encounter [facility] Date(s): 09/11/21 - 10/11/21 [facility] Allergies, Adverse Reactions, Alerts No Known Medication [...] 6 Refills, Maintenance, 10/29/20 16:52:00 EST, Tablet, [facility] #[id number], Partial fill upon patient request if the prescription is for a schedule II opioid drug., 1 tablet By Dede... Start Date: 10/29/20 Status: Ordered Zofran 8 mg oral tablet 1 tablet = 8 mg, By Mouth, Every 8 hours, PRN Nausea & Vomiting, # 10 tablet, 0 Refills, Maintenance, 01/02/21 16:26:00 EDT, Tablet, [facility] #[id number], Partial fill upon patient requestif the prescription [...]
--- OUTSIDE RECORDS SUMMARY | 2024-06-27 14:00 | XMS_ITS | Continuity of Care Document ---
Author Organization [facility] Address Unknown Care Team Providers Care Dynamicist Name Role Phone Linda Roy DO Primary Care Physician En[place] [facility] Date(s): 09/10/21 - 10/10/21 [facility] Allergies, Adverse Reactions, Alerts No Known [...] 6 Refills, Maintenance, 10/29/20 16:52:00 EST, Tablet, [facility] #[id number], Partial fill upon patient request if the prescription is for a schedule II opioid drug., 1 tablet By Dede... Start Date: 10/29/20 Status: Ordered Zofran 8 mg oral tablet 1 tablet = 8 mg, By Mouth, Every 8 hours, PRN Nausea & Vomiting, # 10 tablet, 0 Refills, Maintenance, 01/02/21 16:26:00 EDT, Tablet, [facility] #[id number], Partial fill upon patient requestif the prescription [...]
--- OUTSIDE RECORDS SUMMARY | 2024-06-27 14:00 | XMS_ITS | Continuity of Care Document ---
Author Organization [facility] Address [address] [place] [address]- Care Team Providers Care Sr. Pricing Analyst Name Role Phone Linda Roy DO Primary Care Physician En[place] [facility] Date(s): 05/20/23 - 07/01/23 [facility] [address] [place] [address]- Encounter Diagnosis Low back pain, unspecified(Final) - Discharge Disposition: A-D/C Home Attending Physician: Jessica Alba MD Admitting Physician: Jessica Alba MD Referring Physician: Jessica Alba MD Allergies, Adverse Reactions, Alerts No Known [...] Comment: [10/16/2015] ORDERED BY DR. ROY Medications Vitamin D2 By Mouth, 0 Refills, [...] Personnel Name: Linda Roy DO Position: S Physician - Primary Care Member Role: PCP Address: Address: [address] [place] [address]- Care Team Related Persons Name: DAVIDA TIM Address: home [address] [place] [address]
--- OUTSIDE RECORDS SUMMARY | 2024-06-27 14:00 | XMS_ITS | Continuity of Care Document ---
Author Organization [facility] Address [address] [place] [address]- Care Team Providers Care Viscose Department Worker Name Role Phone Linda Clark DO Primary Care Physician Encounter [facility] Date(s): 10/29/20 - 11/28/20 [facility] [address] [place] [address]- Attending Physician: AdmDung hilton Admitting Physician: Admtr, Ar8 Referring Physician: Admtr, Ar8 Allergies, Adverse Reactions, [...] Vaccine, Inactivated 10/08/05 Recorded Measles/Mumps/Rubella Virus Vaccine 4/12/07 Recor ded Measles/Mumps/Rubella Virus Vaccine 10/08/05 Recor [...] 6 Refills, Maintenance, 10/29/20 16:52:00 EST, Tablet, [facility] #[id number], Partial fill upon patient request if the prescription is for a schedule II opioid drug., 1 tablet By Dede... Start Date: 10/29/20 Status: Ordered Problem List Condition Effective Dates Status Health Status Inform ant Obese(Confirmed) Active [facility](Confirmed) Active Social History Social History Type Response Smoking Status Never smoker; Tobacc o user in household: No entered on: 04/17/15 Sex
--- OUTSIDE RECORDS SUMMARY | 2024-06-27 14:00 | XMS_ITS | Continuity of Care Document ---
Author Organization [facility] Address [address] [place] [address]- Care Team Providers Care Instructor Physical Name Role Phone Manuela Linda HERNANDEZ Primary Care Physician Encounter [facility] Date(s): 11/04/22 - 12/04/22 [facility] [address] [place] [address]- Attending Physician: Dung Torrez Admitting Physician: Dung [...] Personnel Name: Linda Clark DO Position: S Primary Care Physician Member Role: PCP Address: Address: [address] [place] [address]- Care Team Related Persons Name: DAVIDA TIM Address: home [address] [place] [address]
--- OUTSIDE RECORDS SUMMARY | 2024-06-27 14:01 | XMS_ITS | Continuity of Care Document ---
Author Organization [facility] Address [address] [place] [address]- Care Team Providers Care Engineering Mgr Name Role Phone Linda Roy DO Primary Care Physician Encounter [facility] Date(s): 09/16/20 - 10/16/20 [facility] [address] [place], [place] [address] Allergies, Adverse Reactions, Alerts No Known Medication [...] Maintenance, 05/25/16 9:16:40, Route to Pharmacy Electronically, [id number], [facility] [id number] Start Date: 05/25/16 Status: Ordered multivitamin Multiple [...]
--- OUTSIDE RECORDS SUMMARY | 2024-06-27 14:01 | XMS_ITS | Continuity of Care Document ---
Author Organization [facility] Address [address] [place] [address]- Care Team Providers Care Slip Box Changer Name Role Phone Linda Roy DO Primary Care Physician Encounter [facility] Date(s): 09/07/22 - 10/07/22 [facility] [place] [address]- [place] Allergies, Adverse Reactions, Alerts No Known [...] Care Physician Member Role: PCP Address: Address: [address] [place] [address]- Care Team Related Persons Name: DAVIDA TIM Address: home [address] [place] [address]
--- OUTSIDE RECORDS SUMMARY | 2024-06-27 14:01 | XMS_ITS | Continuity of Care Document ---
Author Organization [facility] Address [address] [place] [address]- Care Team Providers Care Aerospace Medicine Physician Name Role Phone Linda Roy DO Primary Care Physician [place] [facility] [place](s): 05/06/22 - 06/05/22 [facility] [address] [place], [place] [address] Allergies, Adverse Reactions, Alerts No Known Medication [...] 6 Refills, Maintenance, 10/29/20 16:52:00 EST, Tablet, [facility] #[id number], Partial fill upon patient request if the prescription is for a schedule II opioid drug., 1 tablet By Dede... Start Date: 10/29/20 Status: Ordered Zofran 8 mg oral tablet 1 tablet = 8 mg, By Mouth, Every 8 hours, PRN Nausea & Vomiting, # 10 tablet, 0 Refills, Maintenance, 01/02/21 16:26:00 EDT, Tablet, [facility] #[id number], Partial fill upon patient requestif the prescription [...] Team Personnel Name: Linda Roy DO Address: [address] [place] [address]
--- OUTSIDE RECORDS SUMMARY | 2024-06-27 14:01 | XMS_ITS | Continuity of Care Document ---
Author Organization [facility] Address [address] [place] [address]- Care Team Providers Care Laborer Shipyard Name Role Phone Anjali ORTIZ, Jessica Alvarenga Primary Care Physician Encounter [facility] Date(s): 01/21/24 - 03/22/[address] [address]- Encounter Diagnosis Other chronic pain(Final) - Discharge Disposition: A-D/C Home Attending Physician: Adrian Rider MD Admitting Physician: Adrian Rider MD Referring Physician: Adrian Rider MD Allergies, Adverse Reactions, Alerts No Known [...] Care team information Care Team Personnel Name: Anjali ORTIZ , Jessica Alvarenga Position: S Outreach Member Role: PCP Address: Address: [address] [place] [address]- Care Team Related Persons Name: DAVIDA TIM Address: home [address] [place] [address]
--- OUTSIDE RECORDS SUMMARY | 2024-06-27 14:01 | XMS_ITS | Continuity of Care Document ---
Author Organization [facility] Address [address] [place] [address]- Care Team Providers Care Dining Chair Seat Cushion Trimmer Name Role Phone Anjali ORTIZ, Jessica Alvarenga Primary Care Physician [place] [facility]14[place] - 03/15/[address] [address] Attending Physician: Dung Torrez Admitting Physician: Dung [...] S Outreach Member Role: PCP Address: Address: [address] [place] [address]- Care Team Related Persons Name: DAVIDA TIM Address: home [address] [place] [address]
--- OUTSIDE RECORDS SUMMARY | 2024-06-27 14:01 | XMS_ITS | Continuity of Care Document ---
Author Organization [facility] Address [address] [place] [address]- Care Team Providers Care Electrical Accessories Assembler Name Role Phone Linda Roy DO Primary Care Physician Encounter [facility] Date(s): 01/27/21 - 02/26/[address] [address] Allergies, Adverse Reactions, Alerts No [...] 6 Refills, Maintenance, 10/29/20 16:52:00 EST, Tablet, [facility] #[id number], Partial fill upon patient request if the prescription is for a schedule II opioid drug., 1 tablet By Dede... Start Date: 10/29/20 Status: Ordered Zofran 8 mg oral tablet 1 tablet = 8 mg, By Mouth, Every 8 hours, PRN Nausea & Vomiting, # 10 tablet, 0 Refills, Maintenance, 01/02/21 16:26:00 EDT, Tablet, [facility] #[id number], Partial fill upon patient requestif the prescription [...]
--- OUTSIDE RECORDS SUMMARY | 2024-06-27 14:01 | XMS_ITS | Continuity of Care Document ---
Author Organization [facility] Address [address] [place] [address]- Care Team Providers Care Auto Damage Adjuster Name Role Phone Linda Roy DO Primary Care Physician Encounter [facility] [id number] Date(s): 08/25/22 - 09/24/[address] [address]- Attending Physician: Dung Torrez Admitting Physician: AdmtrDung Referring Physician: AdmtrIsrael8 Allergies, Adverse Reactions, Alerts No Known Medication [...] Care Physician Member Role: PCP Address: Address: [address] [place] [address]- Care Team Related Persons Name: DAVIDA TIM Address: home [address] [place] [address]
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
--- OUTSIDE RECORDS SUMMARY | 2024-06-27 14:01 | XMS_ITS | Continuity of Care Document ---
Author Organization [facility] Address [address] [place] [address]- Care Team Providers Care Alternative Education Teacher Name Role Phone Linda Roy DO Primary Care Physician Encounter [facility] Date(s): 12/01/19 - 12/11/[address] [address]- [facility] Attending Physician: Dung Torrze Admitting Physician: AdmtrDung Referring Physician: Admtr, ArHomero Allergies, Adverse Reactions, Alerts No Known Medication [...] Maintenance, 05/25/16 9:16:40, Route to Pharmacy Electronically, [id number], [facility] [id number] Start Date: 05/25/16 Status: Ordered multivitamin Multiple [...]
[2024-06-27 14:10] LABS: MANUAL DIFF FLAG NO
[2024-06-27 14:11] LABS: Basophils Percent Auto 0.6 % (0-2); Eosinophils Absolute Auto 0.1 X10*3/uL (0.0-0.4); Eosinophils Percent Auto 1.2 % (0-4); Hematocrit 41.1 % (37.0-47.0); Hemoglobin 13.8 g/dl (12.0-16.0); Imm Gran Abs Auto 0.03 X10*3/uL (0.00-0.03); Imm Gran Pct Auto 0.4 % (0.0-0.4); Lymphocytes Absolute Auto 2.2 X10*3/uL (1.2-4.9); Lymphocytes Percent Auto 29.7 % (20-40); Mean Corpuscular HGB Conc 33.6 g/dl (31.0-35.0); Mean Corpuscular Hemoglobin 27.2 pg (27.0-33.0); Mean Corpuscular Volume 80.9 fL (80.0-98.0); Mean Platelet Volume 9.1 fL (9.4-12.3); Monocytes Absolute Auto 0.6 X10*3/uL (0.1-1.2); Monocytes Percent Auto 7.6 % (2-11); Neutrophils Absolute Auto 4.4 x10*3/uL (2.0-8.3); Neutrophils Percent Auto 60.5 % (45-73); Platelet Count 415 X10*3/uL (160-400); Red Blood Count 5.08 X10*6/uL (4.20-5.50); Red Cell Distribution Width 14.5 % (11.0-16.0); White Blood Count 7.3 X10*3/uL (4.8-10.8)
[2024-06-27 14:25] LABS: Lactic Acid 0.6 mmol/L (0.5-2.0)
[2024-06-27 14:31] LABS: Alanine Aminotransferase 17 U/L (0-31); Albumin Level 4.1 g/dL (3.5-5.0); Alkaline Phosphatase 111 U/L (39-117); Anion Gap 8 (12-20); Aspartate Amino Transferase 22 U/L (5-31); Bilirubin Direct 0.2 mg/dL (0.0-0.5); Bilirubin Total 0.7 mg/dL (0.0-1.0); Blood Urea Nitrogen 10 mg/dL (9-16); Calcium 9.4 mg/dL (8.4-10.2); Carbon Dioxide 27 mmol/L (22-29); Chloride 108 mmol/L (96-108); Creatinine Clr Calc Pharmacy 142.4; Estimated Glomerular Filt Rate > 60; Glucose Random 90 mg/dL (60-115); Lipase 22 U/L (8-78); Magnesium 1.9 mg/dL (1.6-2.6); Potassium 3.7 mmol/L (3.3-5.1); Sodium 139 mmol/L (135-145)
[2024-06-27 14:36] LABS: HCG Quantitative < 2 mIU/mL
[2024-06-27] MEDS: iohexoL 350 MG/ML 100 ML INFUS..BTL IV (14:49)
[2024-06-27] MEDS: Acetaminophen 1,000 MG/100 ML PIGGYBACK 400 MG IV (14:52)
[2024-06-27] MEDS: 0.9 % Sodium Chloride 1,000 ML 999 ML IV (14:52)
[2024-06-27] MEDS: ondansetron HCL 4 MG/2 ML VIAL IVPUSH (14:52)
[2024-06-27 18:08] VITALS: BP 112/76; PULSE 60; RESP 16; TEMP 36.9; O2SAT 99
--- NOTE | 2024-06-27 20:03 | PC.NURSE ---
pt requesting to leave
[2024-06-27 20:26] VITALS: BP 112/76; PULSE 60; RESP 16; TEMP 36.9; O2SAT 99
== END 2024-06-27 20:26 | disposition home or self-care (01) ==
PROVIDERS: Physician Assistant; Emergency Provider Emergency Medicine; PCP Pediatrics
DX: R10.31 Right lower quadrant pain (principal); R11.0 Nausea; R50.9 Fever, unspecified; R10.2 Pelvic and perineal pain; Z79.899 Other long term (current) drug therapy
CPT/HCPCS: 36415; 74177; 76830; 76856; 80048; 80076; 83605; 83690; 83735; 84702; 85025; 93975; 96361; 96374; 96375; 99285; J0131; J2405; Q9967

== ENCOUNTER 2024-08-29 10:43 | Outpatient (AMB) | payer MEDICAID, SELFPAY ==
--- NOTE | 2024-08-29 10:45 | MHC.OFFVIS ---
Vital Signs 08/29/24 10:52 Height 5 ft 3 in Weight 261 lb 2 oz BMI 46.3 BP 132/69 Blood Pressure Location Lt brachial Position Sitting Pulse 65 Intake Visit Reasons: umbilical hernia Intake Note: Patient is seen in office for evaluation of an umbilical hernia Pt c/o: does not feel a lump admits to consistent pain for 1-2 months, feels like punching in the stomach , admits to nausea and vomit, lately constipation, no prior surgeries PCP: 08/14/24 ED/CT: 06/27/24 Sdv Pilot/Navigator/Dds Operator Required: No Accompanied by: Self / Same As Patient Allergies No Known Allergies Allergy (Verified 08/29/24 10:51) HPI Comments Details: 24-year-old female patient presenting for evaluation of an umbilical hernia. She is unable to feel a lump in the umbilicus however has had persistent pain in this location for the past 2 months. She reports feeling liquor abdomen was punched with the associated nausea and vomiting as well as constipation. She denies a previous history of hernias or hernia surgeries. Subsequent workup with CT abdomen and pelvis performed in the emergency department on 06/27/2024 revealed a fat containing umbilical hernia. She presents today to discuss repair of this umbilical hernia. [facility] Medical History (Updated 08/29/24 @ 10:53 by Tao Juan MD) Umbilical hernia Social History Alcohol intake: never Patient Tobacco Use Status: Never used Tobacco Review of Systems Const All systems reviewed & are unremarkable except as noted in HPI and below Denies chills, Denies fever(s), Denies headache(s), Denies poor appetite and Denies weakness ENT Denies headache(s) Card Denies chest pain, Denies irregular heart rhythm, Denies palpitations and Denies dyspnea Resp Denies cough, Denies excessive phlegm production and Denies dyspnea GI Denies abdominal pain, Denies bloating, Denies change in bowel habits, Denies constipation, Denies heartburn, Denies diarrhea, Denies nausea and Denies vomiting Denies urinary frequency Musc Denies back pain, Denies muscle weakness and Denies numbness Skin/Breast Denies changing lesions and Denies unusual bruising Neuro Denies headache(s), Denies numbness, Denies paresthesias and Denies weakness Psych Denies anxiety and Denies depression Endo Denies palpitations Logan/Lymph Denies lymphadenopathy Physical Exam Const General: cooperative and no acute distress Nutritional Appearance: well nourished Orientation/consciousness: patient oriented x3 Limitations: no limitations HEENT Head: Yes normocephalic and Yes atraumatic Ears: hearing grossly normal bilaterally Resp Effort & Inspection: normal respiratory effort, no audible wheezes, no cough and no respiratory distress Cardio Jugular venous distension: no JVD GI Inspection: Yes normal to inspection Palpation (GI): Soft to palpation, nontender, no guarding, not rigid and Hernia present umbilical (Reducible, 2 cm) Skin Other: Warm, dry, no rash Neuro General: patient oriented x3 Extrem General: Yes no clubbing, cyanosis or edema Assessment & Plan Assessment & Plan (1) Umbilical hernia: Code(s): K42.9 - Umbilical hernia without obstruction or gangrene Category: Medical Qualifiers: Obstruction and gangrene presence: without obstruction or gangrene Qualified Code(s): K42.9 - Umbilical hernia without obstruction or gangrene Plan 24-year-old female patient presenting with a reducible umbilical hernia which is causing discomfort. I recommended repair of this umbilical hernia with mesh and after discussion of the procedure, risks, and alternatives, she consents to the surgery. This will be scheduled as a short-stay surgery. Coding Level of Care Code New Pt Level 4 (72107) Diagnoses Umbilical hernia without obstruction and without gangrene K42.9 Obstruction and gangrene presence: without obstruction or gangrene
[2024-08-29 10:52] VITALS: BP 132/69; PULSE 65; BMI 46.3
== END 2024-08-29 11:06 | disposition home or self-care (01) ==
PROVIDERS: PCP Pediatrics; Visit Provider Surgery
DX: K42.9 Umbilical hernia without obstruction or gangrene (principal)
CPT/HCPCS: 99204

== ENCOUNTER → 2024-08-29 10:43 | Outpatient (BNVA) | payer MEDICAID, SELFPAY | PROVIDERS: PCP Pediatrics; Visit Provider Surgery | DX: K42.9 Umbilical hernia without obstruction or gangrene (principal) | CPT/HCPCS: 99202 ==

== ENCOUNTER 2024-09-18 08:21 | Day surgery (SDC) | payer MEDICAID, SELFPAY ==
[2024-09-14 07:44] VITALS: BMI 46.2
[2024-09-18] VITALS (10 sets, daily range): BP systolic 111–127; BP diastolic 66–86; PULSE 79–94; RESP 16–18; TEMP 36.1–37.3; O2SAT 50–100
[2024-09-18 08:44] LABS: UPreg QC Valid YES; Urine Pregnancy NEGATIVE (NEGATIVE)
[2024-09-18] MEDS: Lactated Ringers 1,000 ML 100 ML IVCONT (08:57)
--- NOTE | 2024-09-18 09:12 | MHC.SHP ---
Pre-Procedural Eval Section A - 24 Hr Update-Section A only Date of Service: 09/18/24 The patient is an INPATIENT: No Changes since office visit: Yes Patient answered all questions; No Cold of Flu in the past 2 weeks, No New Medical Problems and No Changes in Medication The patient has been examined within 24 hours of the surgical procedure. The History & Physical has been completed within 30 days and I have reviewed it.: Yes Section B - Complete if H&P > 30 days Chief Complaint: Umbilical hernia without obstruction or gangrene Allergies: Allergies Allergy/AdvReac Type Severity Reaction Status Date / Time No Known Allergies Allergy Verified 08/29/24 10:51 Plan Diagnosis/Plan: Unchanged I have reviewed the history and physical and performed a pertinent physical examination on my patient. No changes have occurred unless specified. Time Spent With Patient Time: Total time managing care of this patient today ____ minutes.
--- NOTE | 2024-09-18 09:20 | P.CONAN_ITS ---
Documented by User: Orin Morton NP 09/15/24 09:40 HPI - Anesthesia Eval Consult details Narrative: 24yo F for Hernia Umbilical Reducible with mesh PMFSH Active Problems Active Problems: All Active Problems Umbilical hernia (Acute) Past Medical History Medical History (Updated 08/29/24 @ 10:53 by Tao Juan MD) Umbilical hernia Social History Social History Are you a primary healthcare network pricing consultant to a significant other at home: No Do you presently have visiting nurse or other home services: No Alcohol intake: never Patient Tobacco Use Status: Never used Tobacco Second Hand Smoke Exposure: No Use of substances other than those prescribed or required for medical reasons: No Have you been hit, kicked, punched, or otherwise hurt by someone within the past year? If so, by whom?: No Are you DNR?: No Advance Directives: No Advance Directives Information Provided: Yes Advance Directives on File: No Recently lost weight without trying: No Eating poorly because of decreased appetite: No Nutrition Risks: No Nutritional Risk Patient : No FDLMP: 09/11/24 : No Poor oral hygiene: No Meds Allergies Allergy/AdvReac Type Severity Reaction Status Date / Time No Known Allergies Allergy Verified 08/29/24 10:51 Home Medications ?Medication ?Instructions ?Recorded ?Confirmed ?Last Taken ?Type ergocalciferol (vitamin D2) 1,250 1,250 mcg PO QWEEK 08/29/24 09/18/24 Unknown History mcg (50,000 unit) capsule ofloxacin 0.3 % eye drops 1 drp ophthalmic (eye) QID 08/29/24 09/18/24 Unknown History Exam Height,Weight and Vital Signs: Height 5 ft 3 in Weight 118.388 kg Pertinent Lab Results Pertinent Lab Results: Laboratory Tests 06/27/24 14:05 WBC 7.3 Hgb 13.8 Hct 41.1 Plt Count 415 H Sodium 139 Potassium 3.7 Chloride 108 Carbon Dioxide 27 BUN 10 Creatinine 0.77 Assessment and Plan Assessment Anesthesia Assessment: Chart Reviewed Documented by User: Zenia Grace DO 09/18/24 09:24 [facility] Past Medical History Medical History (Updated 08/29/24 @ 10:53 by Tao Juan MD) Umbilical hernia Family History Family history of problems with anesthesia: No Surgical History History of Problems with Anesthesia: No (never had surgery before) Social History Social History Are you a primary healthcare network pricing consultant to a significant other at home: No Do you presently have visiting nurse or other home services: No Alcohol intake: never Patient Tobacco Use Status: Never used Tobacco Second Hand Smoke Exposure: No Use of substances other than those prescribed or required for medical reasons: No Have you been hit, kicked, punched, or otherwise hurt by someone within the past year? If so, by whom?: No Are you DNR?: No Advance Directives: No Advance Directives Information Provided: Yes Advance Directives on File: No Recently lost weight without trying: No Eating poorly because of decreased appetite: No Nutrition Risks: No Nutritional Risk Patient : No FDLMP: 09/11/24 : No Poor oral hygiene: No Meds Allergies Allergy/AdvReac Type Severity Reaction Status Date / Time No Known Allergies Allergy Verified 08/29/24 10:51 Home Medications ?Medication ?Instructions ?Recorded ?Confirmed ?Last Taken ?Type ergocalciferol (vitamin D2) 1,250 1,250 mcg PO QWEEK 08/29/24 09/18/24 Unknown History mcg (50,000 unit) capsule ofloxacin 0.3 % eye drops 1 drp ophthalmic (eye) QID 08/29/24 09/18/24 Unknown History Exam Exam Date and Time: 09/18/24 0920 Airway Mallampati Class: I TM Dist: >3cm Neck ROM: Full Loose/Missing/Broken Teeth: No (patient denies any loose or broken teeth) Heart: S1S2 Lungs: CTAB Assessment and Plan Assessment Anesthesia Assessment: Anesthesia Plan Discussed and Chart Reviewed Final Anesthetic Review Family History of Problems with Anesthesia: No History of Problems with Anesthesia: No (never had surgery before) NPO: Yes ASA Class: II Final Preanesthetic Review: No Changes in Pt Med Stat, Meds/Allgs Chart Reviewed, Consent Obtained/Reviewed and Anes Risks/Benef Reviewed Patient Risk: Low Procedure Risk: Low Anesthetic Plan Anesthetic Plan: GA and Agree w/ Assess. and Plan Disposition: Standard PACU
--- NOTE | 2024-09-18 10:32 | W.PM.OPN ---
Operative Note Operative Note Date of Service: 09/18/24 Narrative: Preoperative diagnosis: Umbilical hernia, reducible Postoperative diagnosis: Same Procedure: Repair of reducible umbilical hernia Surgeon: Tao Juan MD Customer Marketing Intern: Iliana Wood PA-C Anesthesia: General LMA Indications for procedure: 24-year-old female patient presenting with a palpable lump located below the umbilicus which increases in size with standing and lifting. CT confirms umbilical hernia Operative findings: 6 cm umbilical hernia repaired with a 8 cm Ventralex mesh. Specimen: None Estimated blood loss: 4 cc Complications: None Procedure details: Patient was brought to the OR and placed in a supine position. After administering general anesthesia the patient's abdomen was prepped with ChloraPrep and draped in a sterile fashion. A surgical time-out was called the consent confirmed. Patient received preoperative antibiotics and Venodyne boots were in place. Local anesthesia was infiltrated over the umbilicus. A curvilinear incision was then made over the umbilicus and carried out through subcutaneous tissue down to muscle fascia. The umbilical skin was then lifted off the fascia using electrocautery. A large umbilical hernia was identified. The hernia was dissected circumferentially to reveal a preperitoneal space. Preperitoneal space was created circumferentially using electrocautery. Hemostasis was assured at all times using electrocautery. An 8 cm round Ventralex mesh was then obtained. This was secured in all 4 quadrants using 0 Tycron suture. Fascia was then closed over the mesh using [id number] Tycron sutures incorporating the mesh in the closure. Wounds were then irrigated with saline solution and suctioned dry. Umbilical skin was reattached to the fascia using a 3-0 Polysorb suture. Subcutaneous tissue and dermis were then closed using interrupted 3-0 Polysorb sutures. Skin was closed using a running subcuticular 4-0 Polysorb suture. Steri-Strips, 4 x 4 gauze and Tegaderm were then applied. The patient tolerated the procedure well. Sponge, instrument, and needle counts reported as correct. The patient was transferred to PACU in stable condition.
[2024-09-18] MEDS: Acetaminophen 325 MG TABLET 650 MG PO (11:19)
[2024-09-18] MEDS: fentaNYL citrate/PF 100 MCG/2 ML VIAL 50 MCG IVPUSH ×2 (11:27→11:44)
[2024-09-18] MEDS: oxyCODONE HCl Immed Release 5 MG TABLET PO (11:53)
== END 2024-09-18 12:47 | disposition home or self-care (01) ==
PROVIDERS: Nurse Practitioner; PCP Pediatrics; Visit Provider Surgery
PROC: (CPT 49593; principal; 2024-09-18 09:50)
DX: K42.9 Umbilical hernia without obstruction or gangrene (principal); R11.2 Nausea with vomiting, unspecified; K59.00 Constipation, unspecified; Z79.899 Other long term (current) drug therapy
CPT/HCPCS: 49593; 81025; C1781; J0690; J1100; J1885; J2003; J2250; J2405; J2704; J2795; J3010

== ENCOUNTER → 2024-09-18 08:21 | Outpatient (BNV) | payer MEDICAID, SELFPAY | PROVIDERS: PCP Pediatrics; Visit Provider Surgery | DX: K42.9 Umbilical hernia without obstruction or gangrene (principal) | CPT/HCPCS: 49593 ==

== ENCOUNTER 2024-09-29 10:11 | Outpatient (AMB) | payer MEDICAID, SELFPAY ==
--- NOTE | 2024-09-29 10:13 | A.OFFVIS_ITS ---
Vital Signs 09/29/24 10:18 Height 5 ft 3 in Weight 262 lb 5.601 oz BMI 46.5 Respiration 18 Pulse 82 Intake Visit Reasons: S/P umbilical hernia w/mesh Intake Note: Patient is seen in office for post op assessment post umbilical hernia repair. Pt c/o:sore and tender, denies redness or discharge surgery: 09/18/24 [employer] Required: No Accompanied by: Family/Other Allergies No Known Allergies Allergy (Verified 09/29/24 10:17) Medication List - Last Reconciled 09/29/24 by Tao Juan MD ergocalciferol (vitamin D2) 1,250 mcg PO QWEEK ofloxacin 0.3% 1 drp ophthalmic (eye) QID HPI Comments Details: 24-year-old female patient returning 1 week following umbilical hernia repair. The pain is improving and she is generally feeling well. She denies any nausea or vomiting. [facility] Medical History Umbilical hernia (09/18/24) Surgical History History of umbilical hernia repair (09/18/24) Social History Are you a primary urgent care physician assistant to a significant other at home: No Do you presently have visiting nurse or other home services: No Alcohol intake: never Patient Tobacco Use Status: Never used Tobacco Second Hand Smoke Exposure: No Physical Exam Vital Signs: Last Vital Signs Pulse 82 09/29/24 10:18 Resp 18 09/29/24 10:18 BMI result Body Mass Index 46.5 Const General: comfortable Nutritional Appearance: well nourished Orientation/consciousness: patient oriented x3 Resp Effort & Inspection: normal respiratory effort, no audible wheezes, no cough and no respiratory distress GI Other: Umbilical incision is clean, dry, and intact with intact Steri-Strips. No evidence of hematoma, erythema or hernia recurrence. Neuro General: patient oriented x3 Extrem General: Yes no clubbing, cyanosis or edema Assessment & Plan Assessment & Plan (1) Umbilical hernia: Onset Date: 09/18/24 Comment: Tao Juan MD Code(s): K42.9 - Umbilical hernia without obstruction or gangrene Category: Medical Qualifiers: Obstruction and gangrene presence: without obstruction or gangrene Qualified Code(s): K42.9 - Umbilical hernia without obstruction or gangrene Plan 24-year-old female patient status post repair of an umbilical hernia with mesh. She tolerated the procedure well and her wounds are healing nicely. She should continue to avoid lifting greater than 10 lb for the next month. She will return in 1 month for follow-up examination. Coding Level of Care Code Global (00536) Diagnoses Umbilical hernia without obstruction and without gangrene K42.9 Obstruction and gangrene presence: without obstruction or gangrene
[2024-09-29 10:18] VITALS: PULSE 82; RESP 18; BMI 46.5
== END 2024-09-29 10:23 | disposition home or self-care (01) ==
PROVIDERS: PCP Pediatrics; Visit Provider Surgery
DX: K42.9 Umbilical hernia without obstruction or gangrene (principal)
CPT/HCPCS: 99212

== ENCOUNTER → 2024-09-29 10:11 | Outpatient (BNVA) | payer MEDICAID, SELFPAY | PROVIDERS: PCP Pediatrics; Visit Provider Surgery | DX: K42.9 Umbilical hernia without obstruction or gangrene (principal) | CPT/HCPCS: 99212 ==

== ENCOUNTER 2024-12-12 13:24 | Outpatient (AMB) | payer MEDICAID, SELFPAY ==
--- NOTE | 2024-12-12 13:37 | MHC.OFFVIS ---
Vital Signs 12/12/24 13:38 Height 5 ft 3 in Weight 262 lb 5.601 oz BMI 46.5 Respiration 16 Pulse 80 Intake Visit Reasons: one month, post umbilical hernia Intake Note: Patient is seen in office for one month follow up visit, post umbilical hernia repair. Pt c/o:has stomach pain every other week and feels like stabbing incision right abdomen, denies any other concerns Policyholder Information Clerk Required: No Accompanied by: Self / Same As Patient Allergies No Known Allergies Allergy (Verified 12/12/24 13:38) Medication List - Last Reconciled 12/12/24 by Tao Juan MD ergocalciferol (vitamin D2) 1,250 mcg PO QWEEK ofloxacin 0.3% 1 drp ophthalmic (eye) QID HPI Comments Details: 24-year-old female patient returning 1 month following umbilical hernia repair. She feels well and denies any ongoing symptoms. FORMERLY [facility], [facility] Medical History Umbilical hernia (09/18/24) Surgical History History of umbilical hernia repair (09/18/24) Social History Are you a primary out of school hours care worker to a significant other at home: No Do you presently have visiting nurse or other home services: No Alcohol intake: never Patient Tobacco Use Status: Never used Tobacco Second Hand Smoke Exposure: No Physical Exam Vital Signs: Last Vital Signs Pulse 80 12/12/24 13:38 Resp 16 12/12/24 13:38 BMI result Body Mass Index 46.5 Const General: comfortable Nutritional Appearance: well nourished Orientation/consciousness: patient oriented x3 Resp Effort & Inspection: normal respiratory effort, no audible wheezes, no cough and no respiratory distress GI Other: Umbilical incision is clean, dry, and intact. No hernia noted with Valsalva maneuvers. Neuro General: patient oriented x3 Extrem General: Yes no clubbing, cyanosis or edema Assessment & Plan Assessment & Plan (1) Umbilical hernia: Onset Date: 09/18/24 Comment: Tao Juan MD Code(s): K42.9 - Umbilical hernia without obstruction or gangrene Category: Medical Qualifiers: Obstruction and gangrene presence: without obstruction or gangrene Qualified Code(s): K42.9 - Umbilical hernia without obstruction or gangrene Plan 24-year-old female patient status post repair of an umbilical hernia with mesh 1 month ago.. She tolerated the procedure well and her wounds are healing nicely. She may resume normal activity without restrictions and should follow up as needed. Coding Level of Care Code Global (61261) Diagnoses Umbilical hernia without obstruction and without gangrene K42.9 Obstruction and gangrene presence: without obstruction or gangrene
[2024-12-12 13:38] VITALS: PULSE 80; RESP 16; BMI 46.5
--- OUTSIDE RECORDS SUMMARY | 2024-12-12 16:51 | XMS_ITS | Continuity of Care Document ---
Author Organization [facility] Address [address] [place] [address] [address] [place] [address]- Care Team Providers Care Boom Stick Worker Name Role Phone Anjali ORTIZ, Jessica Alvaregna Primary Care Physician Encounter [facility] [place] Date(s): 11/24/24 - 12/01/[address] [place] [address]- Attending Physician: Dorothy Spence RD Referring Physician: Jessica Alba MD Encounter Type: Office Visit Allergies, Adverse Reactions, Alerts No Known Medication [...] D2 By Mouth, 0 Refills, Maintenance, 05/10/23 8:19:00 PM EDT, Partial fill upon patient request if the prescription is for a schedule II opioid drug. Start Date: 05/10/23 Status: Ordered Repeat number: 1 Problem List Condition Confirmation Course Effective Dates Status Health St atus Informant Heartburn Confirmed Active Obese Confirmed Active [facility]- [facility] Confirmed Active Severe obesity Confirmed Active Vital Signs Most recent to oldest [Reference Range]: 1 Height 160 cm (11/24/24 10:44 AM) Weight 122.2 kg (11/24/24 10:44 AM) Body Mass Index [18.5-24.99 kg/m2] 47.73 kg/m2 *>HHI* (11/24/24 10:44 AM) Social History Social History Type Response Smoking Status Never smoker; Tobacc o user in household: No entered on: 04/17/15 Sex Sex Representation Female (finding) Patient Care team information Care Team Personnel Name: Anjali ORTIZ , Jessica Alvarenga Position: [facility] Outreach Member Role: PCP Address: [address] [place] [id number] Telecom: Care Team Related Persons Name: DAVIDA TIM Insurance Providers Guarantor name: TAMIKA TIM Health Plan Information #: 1 Payer: [employer] Member Number: [id number] Policy Number: NA Group Number: NA Health Plan Information #: 2 Payer: [employer] Member Number: [id number] Policy Number: NA Group Number: NA
--- OUTSIDE RECORDS SUMMARY | 2024-12-12 16:51 | XMS_ITS | Clinical Summary ---
Author Organization [employer] Address [address] [place] [address] Care Team Providers Care Core Assembly Supervisor Name Role Phone Jessica Alba MD Primary Care Provider [phone] Allergies No known active allergies Medications ergocalciferol (Vitamin D2) 1.25 MG (22583 UT) capsule Take 1 capsule (1.25 mg) by mouth 1 (one) time per week. 15 capsule 10/19/2023 Active Active Problems Problem Noted Date Diagnosed Date Obese 12/01/2022 Irregular menses 10/13/2022 Encounters Date Type Department Care Team Description 09/29/2024 Telephone [facility] [facility] [address] [place], [place] [phone] Jessica Alba MD 09/29/2024 Orders Only [facility] [address] [place], [place] [phone] Jessica Alba MD Class 3 severe obesity without serious comorbidity with body mass index (BMI) of 40.0 to 44.9 in adult, unspecified obesity type (CMS/HCC) (Primary Dx); Chronic bilateral low back pain without sciatica 09/18/2024 Orders Only GENERIC EXTERNAL DATA DEPARTMENT Provider, Generic External Data 09/13/2024 [employer] [facility] [address] [place] [address] Jessica Alba MD 09/13/2024 Orders Only [facility] [address] [place], [place] [phone] Jessica Alba MD Macromastia (Primary Dx); Chronic upper back pain; Obesity, Class III, BMI 40-49.9 (morbid obesity) ([facility]) from Last 3 Months Immunizations Name Administration Dates Next Due DTaP 08/19/2006, 6,12/08/2005,10/08 HPV, Quadrivalent 10/16/2015 HPV, Unspecified 04/12/2014,09/11/2013 Hep A, Unspecified 04/12/2014,06/20/2003 Hep A, ped/adol, 2 dose 08/14/2019,04/12/2014, Hep B, Adolescent or Pediatric 02/09/2006,2005,10/08/2005 Hib (HbOC) 10/08/2005 IPV 01/20/2007, 6,12/08/2005,10/08 Influenza Injectable Quadriv alant Preservative Free IIV4 MDCK 08/05/2023 Influenza injectable quadriv alent preservative free 10/29/2020 Influenza, IIV3, injectable 09/15/2021,0 10/29/2020,08/14/2019,08/02,11/16/2016,08/19/2015,06/20/2003 Influenza, seasonal, injecta ble, preservative free 08/01/2024 MMR 01/20/2007,10/08/2005 Meningococcal ACWY, unspecified 08/14/2019,05/25 Pneumococcal Conjugate PCV 7 12/08/2005,10/08/20 05 Tdap 09/11/2013 Varicella 08/14/2019,10/08/2005,06/20/2003 Family History Medical History Relation Name Comments No Known Problems Brother No Known Problems Father No Known Problems Mother No Known Problems Sister Relation Name Status Comments Brother Father Mother Sister Social History Tobacco Use Types Packs/Day Years Used Date Smoking Tobacco: Never Passive Smoke Exposure: Never Smokeless Tobacco: Never Tobacco Cessation:Counseling Given: Not Answered Alcohol Use Standard Drinks/Week Comments Never 0 (1 standard drink = 0.6 oz pur e alcohol) Depression Answer Date Recorded Patient Health Questionnaire-9 Score 3 10/19/2023 Patient Health Questionnaire-9 Score 3 10/19/2023 Last PHQ-9: Questionnaire Data Not on file 0 10/19/2023 Housing Stability Answer Date Recorded What is your housing situation today? I have housing today, but I am worried about losing housing in the future 12/16/[address] you li ve. Do you have problems with any of the following? Not on file 12/16/2023 Food Insecurity Answer Date Recorded Within the past 12 months, y ou worried that your food would run out before you got money to buy more: Often true 12/16/2023 Within the past 12 months,th e food you bought just didn't last and you didn't have enough money to get more: Often true 04/2024 Transportation Answer Date Recorded In the past 12 months, has l ack of transportation kept you from medical appts, meetings, work or from getting things needed for daily living? No 12/16/2023 Utilities Answer Date Recorded In the past 12 months, has t he electric, gas, oil or water company threatened to shut off services in your home? No 12/16/2023 Depression Answer Date Recorded Patient Health Questionnaire-2 Score 0 10/19/2023 Comments No Sex and Gender Information Value Date Recorded Sex Assigned at Female 10/13/2022 3:47 PM EST Legal Sex Female 3:42 PM EST Gender Identity Female 10/13/2022 3:47 PM EST Sexual Orientation Choose not to disclose 2022 3:47 PM EST Last Filed Vital Signs Vital Sign Reading Time Taken Comments Blood Pressure 120/68 08/30/2024 9:14 AM EST Pulse 79 08/30/2024 9:14 AM EST Temperature 37 ??C (98.6 ??F) 08/30/2024 9:14 AM EST Respiratory Rate 20 08/30/2024 9:14 AM EST Oxygen Saturation 98% 08/30/2024 9:14 AM EST Inhaled Oxygen Concentration - - Weight 116 kg (255 lb) 08/30/2024 9:14 AM EST Height 160 cm (5' 3 ) 08/30/2024 9:14 AM EST Body Mass Index 45.17 08/30/2024 9:14 AM EST Plan of Treatment Health Maintenance Due Date Last Done Comments Chlamydia and Gonorrhea Screening 2002 HIV Screening 2002 Alcohol/Substance Use Screening 2014 Hepatitis C Screening 2020 DTaP/Tdap/Td Vaccines (6 - Td or Tdap) 09/11/2023 09/11/2013, 08/19/2006, 02/09/2006, Additional history exists SDOH Screening 12/01/2023 12/01/2022 COVID-19 Vaccine ( season) 2024 05/28/2022, 07/04/2021, 06/13/2021 Depression Screening 10/19/2024 10/19/2023, 10/19/19 Family Planning (PISQ) 08/30/2025 08/30/2024 Tobacco Screening 08/30/2025 08/30/2024 Pap Smear 10/19/2026 10/19/2023, 10/19/2023 Lipid Panel 12/01/2027 12/01/2022 Zoster Vaccines (1 of 2) 2052 RSV Patients and Patients Aged 60 years or older (1 - 1-dose 75+ series) 2077 HIB Vaccines Completed 10/08/2005 Pneumococcal Vaccine: Pediatrics (0 to 5 Years) and At-Risk Patients (6 to 49) Years) Aged Out 12/08/2005, 10/08/2005 No longer eligibl e based on patient's age to complete this topic Hepatitis B Vaccines Completed 02/09/2006, 12/08/2005, 10/08/2005 IPV Vaccines Completed 01/20/2007, 11/2005, 12/08/2005, Additional history exists HPV Vaccines Completed 10/16/2015, 12/2013, 09/11/2013 Hepatitis A Vaccines Completed 08/14/2019, 04/12/2014, 04/12/2014, Additional history exists Meningococcal Vaccine Completed 08/14/2019, 016 Influenza Vaccine Completed 08/01/2024, , 09/15/2021, Additional history exists RSV under 20 months Aged Out No longe r eligible based on patient's age to complete this topic Rotavirus Vaccines Aged Out No longer eligible based on patient's age to complete this topic Procedures Procedure Name Priority Date/Time Associated Diagnosis Comments HCG, QL, URINE Routine 09/18/2024 8:33 AM EST PAP SMEAR Routine 10/19/2023 9:35 AM EST Encounter for gynecological examination with Papanicolaou smear of cervix LIPID PANEL, STANDARD Routine 12/01/2022 10:01 AM EST Irregular menses Class 3 severe obesity without serious comorbidity with body mass index (BMI) of 40.0 to 44.9 in adult, unspecified obesity type ([facility]) from Last 3 Months or Most Recently Relevant to Health Maintenance Results * HCG, Qualitative, Urine (09/18/2024 8:33 AM EST) Urine NEGATIVE NEGATIVE [facility] Comment:This test was develo ped to detect early . Falsenegative results may occur after the 5th - 7th week ofpregnancy when using this test method. If clinicallyindicated, consider a serum hCG. 09/18/2024 8:33 AM EST 09/18/2024 8:38 AM EST us Generic External Data Provider LAB URINE ORDERAB LES Final Result Performing Organization Address City/State/[facility] Co de Phone Number [facility] [address] [place] [phone] * Pap Smear (10/19/2023 9:35 AM EST) Swab Cervix uteri structure / Unknown 10/19/2023 9:35 AM EST 10/20/2023 10:22 AM EST Narrative [facility] - 10/27/2023 11:38 AM EST ----- ------- Name: Radha Sheffield ? Age/Sex: 23/F ? : 2000 Unit#: [id number] ?? Attend Dr: Jessica Alba MD ?Re10/19/23 ?Status: DEP REF ? [facility] ? Disch: ? ----- ------- SPEC : [id number] ?RECD: 10/20/23 ? STATUS: ??SOUT ? REQ NUM: [id number] ? DEISY: 10/19/23 ? SUBM DR: Jessica Alba MD ? ENTERED: ??10/20/23 ?SP TYPE: Pap Smr ?OTHR DR: ? ORDERED: ??Pap Smear ? Interpretation ?? Satisfactory for evaluation. ?? Negative for intraepithelial lesion or malignancy. ?Clinical Information LMP: 09/28/2023 Previous PAP test: Unknown date/findings ? Material Received ?? ThinPrep-Cervical ----- ------- Signed (signature on file) TRISTON Peters (ASCP) 10/27/23 1138 ? ----- ------- ? END OF REPORT ? us Jessica Alba MD LAB CYTOLOGY ORDERABLES Final Result [facility] [address] [place] [phone] * (ABNORMAL) Lipid Panel, Standard (12/01/2022 10:01 AM EST) Cholesterol, Total 156 <200 mg/dL [employer] [place] [employer] HDL Cholesterol 45(L) > OR = 50 mg/dL [employer] [facility] Triglycerides 72 <150 mg/dL [employer] [place] [facility] LDL Cholesterol 95 mg/dL (calc) [employer] [place] [facility] Comment: Reference range: <100 Desirable range <100 mg/dL for primary prevention; ?? <70 mg/dL for patients with CHD or diabetic patients with > or = 2 CHD risk factors. LDL-C is now calculated using the Doc calculation, which is a validated novel method providing better accuracy than the Friedewald equation in the estimation of LDL-C. Martínez SS et al. KAILASH. 2013;310(19): 8446-3009 (http://education.Nano Think/faq/FIF262) Chol/HDLC Ratio 3.5 <5.0 (calc) [employer] [facility] Non-HDL Cholesterol 111 <130 mg/dL (calc) [employer] [place] [facility] Comment: For patients with diabetes plus 1 major ASCVD risk factor, treating to a non-HDL-C goal of <100 mg/dL (LDL-C of <70 mg/dL) is considered a therapeutic option. Blood Venous blood specimen / Unknown 12/01/2022 10:01 AM EST 12/01/2022 10:02 AM EST Narrative [facility] - 12/02/2022 12:53 AM EST FASTING:YES FASTING: YES Jessica Alba MD LAB BLOOD ORDERABLES Final Re sult [facility] [address], [place] [phone] [employer] [place] [facility] [employer] [address] [facility], ([address]) [place] [address] from Last 3 Months or Most Recently Relevant to Health Maintenance Insurance C3 Care Teams Core Assembly Supervisor Relationship Specialty Start Date End Date Jessica lAba MD [address] [place] [phone] PCP - General Internal Medicine 12/01/22
--- OUTSIDE RECORDS SUMMARY | 2024-12-12 16:51 | XMS_ITS | Encounter Summary ---
Author Organization [employer] Address [address] [facility] 7 [place] [address] Care Team Providers Care Benefits Counselor Name Role Phone Jessica Alba MD Primary Care Provider [phone] Reason for Visit * Reason Onset Date Comments Order(s) 12/23/2023 Encounter Details Date Type Department Care Team ([facility] st Contact Info) Description 12/23/2023 Telephone [facility] [address] [place] [address] Jessica Alba MD [address] [place] [address] Order(s) Social History Tobacco Use Types Packs/Day Years Used Date Smoking Tobacco: Never Passive Smoke Exposure: Never Smokeless Tobacco: Never Depression Answer Date Recorded Patient Health Questionnaire-9 [...] not to disclose 2022 3:47 PM EST documented as of this encounter Miscellaneous Notes * Telephone Encounter - Emma Cameron RN - 12/23/2023 12:26 PM EDT Noted. Order faxed as requested. * Telephone Encounter - Marcelino Sanchez - 12/23/2023 9:55 AM EDT Tc from Jayshree with [facility] heart [facility] vascular requesting new order for 48 hour Holter. Jayshree stated there was an error with previous 48 hour Holter and pt will be going back today, they need the new order by 1:30. If any questions please contact Jayshree at [phone]. documented in this encounter Plan of Treatment Not on file documented as of this encounter Visit Diagnoses Not on filedocumented in this encounter Additional Health Concerns Assessment Noted Time PHQ-9 Depression Total Score: 3 10/19/19 24 9:09 AM EST documented as of this encounter Care Teams Benefits Counselor Relationship Specialty Start Date End Date Jessica Alba MD [address] [place] [phone] PCP - General Internal Medicine 12/01/22 documented as of this encounter
--- OUTSIDE RECORDS SUMMARY | 2024-12-12 16:51 | XMS_ITS | Continuity of Care Document ---
Author Organization [facility] Address [address] [place] [address] [address] [place] [address] Care Team Providers Care Zmt Operator Name Role Phone Anjali ORTIZ, Jessica Alvarenga Primary Care Physician Encounter [facility] [place] Date(s): 11/09/24 - 11/16/[address] [place] [address]- Attending Physician: Juan Valencia Referring Physician: Jessica Alba MD Encounter Type: [...] Smiles Confirmed Active Severe obesity Confirmed Active Procedures Procedure Date Related Diagnosis Body Site Status Repair of umbilical hernia 09/2024 Completed Vital Signs Most recent to oldest [Reference Range]: 1 Height 160 cm (11/09/24 11:26 AM) Weight 121.0 kg (11/09/24 11:26 AM) Pulse Rate [55-90 bpm] 80 bpm (11/09/24 11:26 AM) Body Mass Index [18.5-24.99 kg/m2] 47.27 kg/m2 *>HHI* (11/09/24 11:26 AM) Blood Pressure [90-138/55-84 mm Hg] 117/ 78mm Hg (11/09/24 11:26 AM) Temperature [96.8-100.4 DegF] 95.4 DegF *L* (11/09/24 11:26 AM) Blood pressure sites Arm, right (11/09/24 11:26 AM) Temperature Route Temporal (11/09/24 11:26 AM) Weight Obtained Via Standing scale (11/09/24 11:26 AM) Social History Social History Type Response Smoking Status Never smoker; Tobacc o user in household: No entered on: 04/17/15 Sex Sex Representation Female (finding) Patient Care team information Care Team Personnel Name: Anjali ORTIZ , Jessica Alvarenga Position: [facility] Outreach Member Role: PCP Address: [address] [place] [address] Telecom: Care Team Related Persons Name: DAVIDA TIM Insurance Providers Guarantor name: TAMIKA TIM Health Plan Information #: 1 Payer: [email or web address] Member Number: [id number] Policy Number: NA Group Number: NA Health Plan Information #: 2 Payer: [email or web address] Member Number: [id number] Policy Number: NA Group Number: NA
--- OUTSIDE RECORDS SUMMARY | 2024-12-12 16:51 | XMS_ITS | Continuity of Care Document ---
Author Organization [facility] Address [address] [place] [address] [address] [place] [address] Care Team Providers Care Drying Room Attendant Name Role Phone Anjali ORTIZ, Jessica Alvarenga Primary Care Physician [place] [facility] [place] - 11/29/[address] [place] [address]- Attending Physician: Dorothy Spence RD Encounter Type: Office Visit Allergies, Adverse Reactions, [...] Smiles Confirmed Active Severe obesity Confirmed Active Social History Social History Type Response Smoking Status Never smoker; Tobacc o user in household: No entered on: 04/17/15 Sex Sex Representation Female (finding) Patient Care team information Care Team Personnel Name: Jessica Alba MD Position: S Outreach Member Role: PCP Address: [address] [place] [address] Telecom: Care Team Related Persons Name: DAVIDA TIM Insurance Providers Guarantor name: TAMIKA TIM [employer] [facility] Information #: 1 Payer: [employer] Member Number: [id number] Policy Number: NA Group Number: NA Health Plan Information #: 2 Payer: [facility] Member Number: [id number] Policy Number: NA Group Number: NA
== END 2024-12-12 13:45 | disposition home or self-care (01) ==
PROVIDERS: PCP Pediatrics; Visit Provider Surgery
DX: K42.9 Umbilical hernia without obstruction or gangrene (principal)
CPT/HCPCS: 99212

== ENCOUNTER → 2024-12-12 13:24 | Outpatient (BNVA) | payer MEDICAID, SELFPAY | PROVIDERS: PCP Pediatrics; Visit Provider Surgery | DX: K42.9 Umbilical hernia without obstruction or gangrene (principal) | CPT/HCPCS: 99212 ==

== ENCOUNTER 2025-06-06 16:04 | Outpatient (REF) | payer MEDICAID, SELFPAY ==
--- OUTSIDE RECORDS SUMMARY | 2025-06-06 11:15 | XMS_ITS | Encounter Summary ---
Author Organization [employer] Address [address] [facility] 7t [place] [address] Care Team Providers Care House Rn Name Role Phone Jessica Alba MD Primary Care Provider [phone] Encounter Details Date Type Department Care Team ([facility] st Contact Info) Description 06/06/2025 11:15 AM EDT Office Visit [facility]EDS [address] [place] [address] Jessica Alba MD [address] [place] [address] Acute vaginitis (Primary Dx); Dietary counseling; Exercise counseling; Chronic pain of left knee Social History Tobacco Use Types Packs/Day Years Used Date Smoking Tobacco: Never Passive Smoke Exposure: Never Smokeless Tobacco: Never Alcohol Use Standard Drinks/Week Comments Never 0 [...] PM EST documented as of this encounter Last Filed Vital Signs Vital Sign Reading Time Taken Comments Blood Pressure 112/80 06/06/2025 11:33 AM EDT Pulse 72 06/06/2025 11:33 AM EDT Temperature 36.6 C (97.8 F) 06/06/2025 11:33 AM EDT Respiratory Rate 20 06/06/2025 11:33 AM EDT Oxygen Saturation - - Inhaled Oxygen Concentration - - Weight 123 kg (272 lb) 06/06/2025 11:33 AM EDT Height - - Body Mass Index 48.18 05/07/2025 3:41 PM EDT documented in this encounter Progress Notes * Jessica Alba MD - 06/06/2025 11:15 AM EDT Subjective Patient ID: Talha Sheffield is a 24 y.o. female who presents for left knee complaints. Talha is a 24-year-old female patient known to me with past medical history of obesity here for recurrent left knee pain. Has been taking ibuprofen but states it makes her sleepy. She is getting PT for her knee and ankle sprain. Was advised to rest leg when possible and do home PT exercises. She hasan Buddy bandage and a brace but does not wear them regularly. She had a benign x-ray of her left knee done recently at [facility] emergency room after she sprained her left ankle when basements there broke . Ankle is doing much better and is not bothering her anymore. Patient works at [employer] is on her feet all day. Review of Systems Constitutional: Negative for activity change, chills, fever and unexpected weight change. Respiratory: Negative for cough, shortness of breath and wheezing. Cardiovascular: Negative for chest pain, palpitations and leg swelling. Gastrointestinal: Negative for abdominal pain and blood in stool. Endocrine: Negative for polydipsia and polyuria. Genitourinary: Negative for decreased urine volume, difficulty urinating, dysuria and hematuria. Musculoskeletal: Positive for arthralgias and joint swelling. Negative for gait problem. Skin: Negative for color change and rash. Neurological: Negative for dizziness and headaches. Hematological: Negative for adenopathy. Psychiatric/Behavioral: Negative for dysphoric mood, hallucinations, sleep disturbance and suicidalideas. The patient is not nervous/anxious. Objective BP 112/80 (BP Location: Left arm, Patient Position: Sitting, BP Cuff Size: Adult) Pulse72 Temp 97.8 ??F (36.6 ??C) (Oral) Resp 20 Wt 272 lb (123 kg) BMI 48.18 kg/m?? Physical Exam Constitutional: General: She is not in acute distress. Appearance: Normal appearance. She is not ill-appearing. HENT: Head: Normocephalic. Right Ear: Tympanic membrane and ear canal normal. Left Ear: Tympanic membrane and ear canal normal. Nose: Nose normal. Mouth/Throat: Mouth: Mucous membranes are moist. Pharynx: No oropharyngeal exudate or posterior oropharyngeal erythema. Eyes: Extraocular Movements: Extraocular movements intact. Conjunctiva/sclera: Conjunctivae normal. Pupils: Pupils are equal, round, and reactive to light. Cardiovascular: Rate and Rhythm: Normal rate and regular rhythm. Pulses: Normal pulses. Heart sounds: Normal heart sounds. Pulmonary: Effort: Pulmonary effort is normal. No respiratory distress. Breath sounds: Normal breath sounds. No wheezing. Abdominal: General: There is distension. Palpations: Abdomen is soft. Musculoskeletal: General: Normal range of motion. Cervical back: Normal range of motion. Right knee: Normal. Left knee: Crepitus present. No swelling, deformity, effusion, erythema or ecchymosis. Normal rangeof motion. Tenderness present. No LCL laxity, MCL laxity, ACL laxity or PCL laxity.Normal meniscus and normal patellar mobility. Right lower leg: No edema. Left lower leg: No edema. Skin: General: Skin is warm. Capillary Refill: Capillary refill takes less than 2 seconds. Neurological: General: No focal deficit present. Mental Status: She is alert and oriented to person, place, and time. Psychiatric: Mood and Affect: Mood normal. Behavior: Behavior normal. Thought Content: Thought content normal. Judgment: Judgment normal. Assessment/Plan Diagnoses and all orders for this visit: Acute vaginitis Comments: Normal Pap in 2023. Check for BV and STI although used vaginal douching and has history of BV. Treat when results available if needed. Orders: - Chlamydia/N. Gonorrhoeae RNA, TMA, Vaginal Dietary counseling Exercise counseling Chronic pain of left knee Comments: Patient had a normal knee x-ray done at [facility] recently. Most likely DJD versus mild sprain. Advised to use knee brace more frequently, diclofenac gel 1% prescribed, continue PT,RTC if want Ortho eval so a referral can be done. Other orders - Diclofenac Sodium 1 % gel; Apply to affected areas bid documented in this encounter Plan of Treatment Scheduled Orders Name Type Priority Associated Diagnoses Orde r Schedule Chlamydia/N. Gonorrhoeae RNA, TMA, Vaginal Microbiology Routine Acute vaginitis Ordered: 06/06/2025 documented as of this encounter Visit Diagnoses Diagnosis Acute vaginitis- Primary Unspecified vaginitis and vulvovaginitis Dietary counseling Dietary surveillance and counseling Exercise counseling Chronic pain of left knee documented in this encounter Additional Health Concerns Assessment Noted Time PHQ-9 Depression Total Score: 3 10/19/19 24 9:09 AM EST documented as of this encounter Care Teams House Rn Relationship Specialty Start Date End Date Jessica Alba MD [address] [place] [address] PCP - General Internal Medicine 12/01/22 documented as of this encounter
--- OUTSIDE RECORDS SUMMARY | 2025-06-06 17:01 | XMS_ITS | Encounter Summary ---
Author Organization [employer] Address 75 [facility] 7t [place] [address] Care Team Providers Care Bread Wrapper Operator Name Role Phone Jessica Alba MD Primary Care Provider [phone] Encounter Details Date Type Department Care Team (Latest Contact Info) Description 06/06/2025 Travel Social History Tobacco Use Types Packs/Day Years [...] PM EST documented as of this encounter Plan of Treatment Not on file documented as of this encounter Visit Diagnoses Not on filedocumented in this encounter Additional Health Concerns Assessment Noted Time PHQ-9 Depression Total Score: 3 10/19/19 24 9:09 AM EST documented as of this encounter Care Teams Bread Wrapper Operator Relationship Specialty Start Date End Date Jessica Alba MD [address] [place] [address] PCP - General Internal Medicine 12/01/22 documented as of this encounter
--- OUTSIDE RECORDS SUMMARY | 2025-06-06 17:01 | XMS_ITS | Encounter Summary ---
Author Organization [employer] Address [address] [facility] 7 [place] [address] Care Team Providers Care Beam Saw Operator Name Role Phone Jessica Alba MD Primary Care Provider [phone] Reason for Visit * Reason Onset Date Comments Order(s) 12/23/2023 Encounter Details Date Type Department Care Team ([facility] st Contact Info) Description 12/23/2023 Telephone [facility] MEDICINE [address] [place] [address] Jessica Alba MD [address] [place] [address] Order(s) Social History Tobacco Use Types Packs/Day [...] 9:55 AM EDT Tc from Jayshree with [facility] heart and vascular requesting new order for 48 hour Holter. Jayshree stated there was an error with previous 48 hour Holter and pt will be going back today, they need the new order by 1:30. If any questions please contact Jayshree at [phone]. documented in this encounter Plan of Treatment Not on file documented as of this encounter Visit Diagnoses Not on filedocumented in this encounter Additional Health Concerns Assessment Noted Time PHQ-9 Depression Total Score: 3 10/19/19 24 9:09 AM EST documented as of this encounter Care Teams Beam Saw Operator Relationship Specialty Start Date End Date Jessica Alba MD [address] [place] [address] PCP - General Internal Medicine 12/01/22 documented as of this encounter
--- OUTSIDE RECORDS SUMMARY | 2025-06-06 17:01 | XMS_ITS | Clinical Summary ---
Author Organization [address] [facility] Address [address] [place] [address] Phone Care Team Providers Care Visual Stylist Name Role Phone Unavailable Primary Care Provider Unavailabl e Social History Tobacco Use Types Packs/Day Years Used Date Smoking Tobacco: Never Assessed Comments Unknown Sex and Gender Information Value Date Recorded Sex Assigned at Not on file Legal Sex Female 9:02 PM EST Gender Identity Not on file Sexual Orientation Not on file Plan of Treatment Health Maintenance Due Date Last Done Comments Gonorrhea/Chlamydia Screening 2002 HPV Vaccines (1 - 3-dose series) 2017 Meningococcal B Vaccine (1 o f 2 - Standard) 2018 DTaP,Tdap,and Td Vaccines (1 - Tdap) 2021 Hepatitis B Vaccines (1 of 3 - 19+ 3-dose series) 2021 Cervical Cancer Screening: P ap Smear 2023 HIV Screening 11/05/2023 Hepatitis C Screening 11/05/2023 Social Influencers of Health Screening 11/05/2023 COVID-19 Vaccine (1 - 2023-2 5 season) 2024 Depression Screening 10/11/2024 Influenza Vaccine (#1) 2025 HIB Vaccines Aged Out No longer eligi ble based on patient's age to complete this topic Hepatitis A Vaccines Aged Out No long er eligible based on patient's age to complete this topic IPV Vaccines Aged Out No longer eligi ble based on patient's age to complete this topic MMR Vaccines Aged Out No longer eligi ble based on patient's age to complete this topic Meningococcal ACWY Vaccine Aged Out N o longer eligible based on patient's age to complete this topic Pneumococcal Vaccine: Pediat rics (0 to 5 Years) and At-Risk Patients (6 to 49 Years) Aged Out No longer eligible b ased on patient's age to complete this topic RSV Immunization Patients Un niecy 20 months Aged Out No longer eligible b ased on patient's age to complete this topic Varicella Vaccines Aged Out No longer eligible based on patient's age to complete this topic Insurance MEDICAID - [place]
--- OUTSIDE RECORDS SUMMARY | 2025-06-06 17:01 | XMS_ITS | Clinical Summary ---
Author Organization [employer] [facility] Address [address] [place] [address] Phone Care Team Providers Care Promotion Officer Name Role Phone Jessica Alba MD Primary Care Provider [phone] Social History Tobacco Use Types Packs/Day Years Used Date Smoking Tobacco: Never Assessed Comments Unknown Sex and Gender Information Value Date Recorded Sex Assigned at Female 09/27/2024 12:36 PM EST Legal Sex Female 11:50 AM EST Gender Identity Female 09/27/2024 12:36 PM EST Sexual Orientation Not on file Plan of Treatment Not on file Medical Devices Not on file Insurance C3 [employer] C[employer] ACO C[employer] ACO C3 ACO C3 ACO MARIYA CROCKETT [id number] [place] [address] C3 [employer]CO MARIYA CROCKETT [id number] Care Teams Promotion Officer Relationship Specialty Start Date End Date Jessica Alba MD [address] [place] [address] PCP - General Internal Medicine 09/14/24 Additional Source Comments The information contained in this document represents components of the legal health record. It is not the complete legal health record.[facility]
--- OUTSIDE RECORDS SUMMARY | 2025-06-06 17:01 | XMS_ITS | Clinical Summary ---
Author Organization [employer] Address [address] [place] [address] 7 [place] [address] Care Team Providers Care Phlebotomy Lab Assistant Name Role Phone Jessica Alba MD Primary Care Provider [phone] Allergies No known active allergies Medications ergocalciferol (Vitamin D2) 1.25 MG (26165 UT) capsule Take 1 capsule (1.25 mg) by mouth 1 (one) time per week. 15 capsule 10/19/2023 Active Diclofenac Sodium 1 % gel Apply to affected areas bid 100 g 3 06/06/2025 Active Active Problems Problem Noted Date Diagnosed Date Chronic pain of left knee 06/06/2025 Obese 12/01/2022 Irregular menses 10/13/2022 Encounters Date Type Department Care Team Description 06/06/2025 11:15 AM EDT Office Visit [facility] [address] [place] [address] Jessica Alba MD Acute vaginitis (Primary Dx); Dietary counseling; Exercise counseling; Chronic pain of left knee 06/06/2025 Travel 05/07/2025 3:30 PM EDT Office Visit [facility] [address] [place] [address] Raquel Roberts FNP Sprain of left ankle, unspecified ligament, subsequent encounter (Primary Dx) 05/07/2025 Travel from Last 3 Months Immunizations Immunization Administration Dates Next Due DTaP 08/19/2006, 6,12/08/2005,10/08 [...] 20 06/06/2025 11:33 AM EDT Oxygen Saturation 98% 05/07/2025 3:41 PM EDT Inhaled Oxygen Concentration - - Weight 123 kg (272 lb) 06/06/2025 11:33 AM EDT Height 160 cm (5' 3 ) 05/07/2025 3:41 PM EDT Body Mass Index 48.18 05/07/2025 3:41 PM EDT Plan of Treatment Health Maintenance Due Date Last Done Comments Chlamydia and Gonorrhea Screening 2002 HIV Screening 2002 Disability Screening 2002 Alcohol/Substance Use Screening 2014 Meningococcal B Vaccine (1 of 2 - Standard) 2018 Hepatitis C Screening 2020 DTaP/Tdap/Td Vaccines (6 - Td or Tdap) 09/11/2023 09/11/2013, 08/19/2006, 02/09/2006, Additional history exists SDOH Screening 12/01/2023 12/01/2022 COVID-19 Vaccine ( season) 2024 05/28/2022, 07/04/2021, 06/13/2021 Depression Screening 10/19/2024 10/19/2023, 10/19/19 Influenza Vaccine (#1) 2025 , 08/05/2023, 09/15/2021, Additional history exists Family Planning (PISQ) 08/30/2025 08/30/2024 Tobacco Screening 06/06/2026 06/06/2025 Pap Smear 10/19/2026 10/19/2023, 10/19/2023 Lipid Panel 12/01/2027 12/01/2022 Zoster Vaccines (1 of 2) 2052 RSV Patients and Patients Aged 60 years or older (1 - 1-dose 75+ series) 2077 HIB Vaccines Completed 10/08/2005 Pneumococcal Vaccine: Pediatrics (0 to 5 Years) and At-Risk Patients (6 to 49) Years Aged Out 12/08/2005, 10/08/2005 No longer eligibl e based on patient's age to complete this topic Hepatitis B Vaccines Completed 02/09/2006, 12/08/2005, 10/08/2005 IPV Vaccines Completed 01/20/2007, 11/2005, 12/08/2005, Additional history exists HPV Vaccines Completed 10/16/2015, 12/2013, 09/11/2013 Hepatitis A Vaccines Completed 08/14/2019, 04/12/2014, 04/12/2014, Additional history exists Meningococcal Vaccine Completed 08/14/2019, 016 RSV under 20 months Aged Out No longe r eligible based on patient's age to complete this topic Rotavirus Vaccines Aged Out No longer eligible based on patient's age to complete this topic Procedures Procedure Name Priority Date/Time Associated Diagnosis Comments PAP SMEAR Routine 10/19/2023 9:35 AM EST Encounter for gynecological examination with Papanicolaou smear of cervix LIPID PANEL, STANDARD Routine 12/01/2022 10:01 AM EST Irregular menses Class 3 severe obesity without serious comorbidity with body mass index (BMI) of 40.0 to 44.9 in adult, unspecified obesity type (CMS/[facility]) from Last 3 Months or Most Recently Relevant to Health Maintenance Results * Pap Smear (10/19/2023 9:35 AM EST) Swab Cervix uteri structure / Unknown 10/19/2023 9:35 AM EST 10/20/2023 10:22 AM EST [facility] - 10/27/2023 11:38 AM EST ----- ------- Name: Radha Sheffield Age/Sex: 23/F : 2000 Unit#: [id number] Attend Dr: Jessica Alba MD Re10/19/23 Status: DEP REF Location: HO.[facility]DS Disch: ----- ------- SPEC : [id number] RECD: 10/20/23 STATUS: KENRICK GAVIRIA NUM: [id number] DEISY: 10/19/[address] [facility] [address]: Jessica Alba MD ENTERED: 10/20/237[address] SP TYPE: Pap [facility] : ORDERED: Pap Smear Interpretation Satisfactory for evaluation. Negative for intraepithelial lesion or malignancy. Clinical Information LMP: 09/28/2023 Previous PAP test: Unknown date/findings Material Received ThinPrep-Cervical ----- ------- Signed (signature on file) TRISTON Peters ([facility]) 10/27/23 1138 ----- ------- END OF REPORT us Jessica Alba MD LAB CYTOLOGY ORDERABLES Final Result [facility] [address] [place] [phone] * (ABNORMAL) Lipid Panel, Standard (12/01/2022 10:01 AM EST) Cholesterol, Total 156 <200 mg/dL [facility] HDL Cholesterol 45(L) > OR = 50 mg/dL [facility] Triglycerides 72 <150 mg/dL [facility] LDL Cholesterol 95 mg/dL (calc) [facility] Comment: Reference range: <100 Desirable range <100 mg/dL for primary prevention; <70 mg/dL for patients with CHD or diabetic patients with > or = 2 CHD risk factors. LDL-C is now calculated using the Doc calculation, which is a validated novel method providing better accuracy than the Friedewald equation in the estimation of LDL-C. Martínez WILHELM et al. KAILASH. 2013;310(19): 5342-4740 (http://education.[employer]/faq/ZPH858) Chol/HDLC Ratio 3.5 <5.0 (calc) [facility] Non-HDL Cholesterol 111 <130 mg/dL (calc) [facility] Comment: For patients with diabetes plus 1 major ASCVD risk factor, treating to a non-HDL-C goal of <100 mg/dL (LDL-C of <70 mg/dL) is considered a therapeutic option. Blood Venous blood specimen / Unknown 12/01/2022 10:01 AM EST 12/01/2022 10:02 AM EST Narrative [facility] - 12/02/2022 12:53 AM EST FASTING:YES FASTING: YES us Jessica Alba MD LAB BLOOD ORDERABLES Final Re sult [facility] [address], [place] [address] [facility] [address] [facility], ([address]) [place] [address] from Last 3 Months or Most Recently Relevant to Health Maintenance Insurance [address] [place], [place] [address] [address] [place] [address] Care Teams Phlebotomy Lab Assistant Relationship Specialty Start Date End Date Jessica Alba MD [address] [place] [address] PCP - General Internal Medicine 12/01/22
== END 2025-06-06 16:05 | disposition home or self-care (01) ==
LOC: HO.CHCLNP 16:04
PROVIDERS: Visit Provider Pediatrics
DX: Z13.89 Encounter for screening for other disorder (principal)

== ENCOUNTER 2025-06-14 11:35 | Outpatient (REF) | payer MEDICAID, SELFPAY ==
[2025-06-14 19:21] LABS: CT PCR NOT DETECTED (Not Detect.); NG PCR NOT DETECTED (Not Detect.)
--- OUTSIDE RECORDS SUMMARY | 2025-06-15 11:32 | XMS_ITS | Clinical Summary ---
Author Organization [employer] [facility] Address [address] [place] [address] Phone Care Team Providers Care Marine Animal Trainer Name Role Phone Jessica Alba MD Primary Care Provider Social History Tobacco Use Types Packs/Day Years [...] ACO C3 ACO C3 ACO MARIYA CROCKETT [id number] [place] [address] C3 [employer] MARIYA CROCKETT [id number] Care Teams Marine Animal Trainer Relationship Specialty Start Date End Date Jessica Alba MD [address] [place] [address] PCP - General Internal Medicine 09/14/24 Additional Source Comments The information contained in this document represents components of the legal health record. It is not the complete legal health record.[facility]
--- OUTSIDE RECORDS SUMMARY | 2025-06-15 11:32 | XMS_ITS | Encounter Summary ---
Author Organization [employer] Address 75 [facility] 7 [place] [address] Care Team Providers Care Critical Care Physician Assistant Name Role Phone Jessica Alba MD Primary Care Provider [phone] Reason for Visit * Reason Onset Date Comments Order(s) 12/23/2023 Encounter Details Date Type Department Care Team ([facility] st Contact Info) Description 12/23/2023 Telephone [facility] MEDICINE [address] [place] [address] Jessica Alba MD [address] [place] [address] Order(s) Social History Tobacco Use Types Packs/Day [...] 9:55 AM EDT Tc from Jayshree with [facility] heart and vascular requesting new order for 48 hour Holter. Jayshree stated there was an error with previous 48 hour Holter and pt will be going back today, they need the new order by 1:30. If any questions please contact Jayshree at [phone]. documented in this encounter Plan of Treatment Not on file documented as of this encounter Visit Diagnoses Not on filedocumented in this encounter Additional Health Concerns Assessment Noted Time PHQ-9 Depression Total Score: 3 10/19/19 24 9:09 AM EST documented as of this encounter Care Teams Critical Care Physician Assistant Relationship Specialty Start Date End Date Jessica Alba MD [address] [place] [address] PCP - General Internal Medicine 12/01/22 documented as of this encounter
--- OUTSIDE RECORDS SUMMARY | 2025-06-15 11:32 | XMS_ITS | Clinical Summary ---
Author Organization 175 [facility] Address [address] [place] [address] Phone Care Team Providers Care Cooker Sulfite Name Role Phone Unavailable Primary Care Provider [...] 11/05/2023 Social Influencers of Health Screening 11/05/2023 Depression Screening 10/11/2024 COVID-19 Vaccine (1 - 2023-2 5 season) 2025 Influenza Vaccine (#1) 2025 HIB Vaccines Aged [...]
--- OUTSIDE RECORDS SUMMARY | 2025-06-15 11:32 | XMS_ITS | Clinical Summary ---
Author Organization [employer] Address [address] [place] [address] [address] [place] [address] Care Team Providers Care Control Clerk Name Role Phone Jessica Alba MD Primary Care Provider [phone] Allergies No known active allergies Medications ergocalciferol (Vitamin D2) 1.25 MG (76616 UT) capsule Take 1 capsule (1.25 mg) by mouth 1 (one) time per week. 15 capsule 10/19/2023 Active Diclofenac Sodium 1 % gel Apply to affected areas bid 100 g 3 06/06/2025 Active Active Problems Problem Noted Date Diagnosed Date Chronic pain of left knee 06/06/2025 Obese 12/01/2022 Irregular menses 10/13/2022 Encounters Date Type Department Care Team Description 06/15/2025 Results Follow-Up [facility] [address] [place] [address] Jessica Alba MD Chlamydia/N. Gonorrhoeae RNA, TMA, Vaginal 06/06/2025 11:15 AM EDT Office Visit [facility] [address] [place] [address] Jessica Alba MD Acute vaginitis (Primary Dx); Dietary counseling; Exercise counseling; Chronic pain of left knee 06/06/2025 Travel 05/07/2025 3:30 PM EDT Office Visit [facility] [address] [place] [address] Raquel Roberts FNP Sprain of left ankle, [...] Health Maintenance Due Date Last Done Comments HIV Screening 2000 Disability Screening 2002 Alcohol/Substance Use Screening 2014 Meningococcal B Vaccine (1 of 2 - Standard) 2018 Hepatitis C Screening 2020 DTaP/Tdap/Td Vaccines (6 - Td or Tdap) 09/11/2023 09/11/2013, 08/19/2006, 02/09/2006, Additional history exists SDOH Screening 12/01/2023 12/01/2022 Depression Screening 10/19/2024 10/19/2023, 10/19/19 COVID-19 Vaccine ( season) 2025 05/28/2022, 07/04/2021, 06/13/2021 Influenza Vaccine (#1) 2025 , 08/05/2023, 09/15/2021, Additional history exists Family Planning (PISQ) 08/30/2025 08/30/2024 Tobacco Screening 06/06/2026 06/06/2025 Chlamydia and Gonorrhea Screening 06/14/2026 06/14/2025 Pap Smear 10/19/2026 10/19/2023, 10/19/2023 Lipid Panel [...] Procedure Name Priority Date/Time Associated Diagnosis Comments CHLAMYDIA/N. GONORRHOEAE RNA, TMA, UROGENITAL Routine 06/14/2025 11:35 AM EDT Acute vaginitis PAP SMEAR Routine 10/19/2023 9:35 AM EST Encounter for gynecological examination with Papanicolaou smear of cervix LIPID PANEL, STANDARD Routine 12/01/2022 10:01 AM EST Irregular menses Class 3 severe obesity without serious comorbidity with body mass index (BMI) of 40.0 to 44.9 in adult, unspecified obesity type ([facility]/HCC) from Last 3 Months or Most Recently Relevant to Health Maintenance Results * Chlamydia/N. Gonorrhoeae RNA, TMA, Vaginal (06/14/2025 11:35 AM EDT) CT PCR NOT DETECTED Not Detect. [facility] Comment:A not detected test result does not exclude the possibilityof infection because test results can be affected byimproper specimen collection, concurrent antibiotic therapy,or the number of organisms in the specimen which may bebelow the sensitivity of the test. As with many diagnostictests, results from the Xpert CT/NG assay should beinterpreted in conjunction with other laboratory andclinical data available to the clinician.Xpert CT/NG performance has not been evaluated in patientsless than 14 years of age. The assay should not be used forthe evaluationof suspected sexual abuse or for other medico-legalindications. Additional testing is recommended in anycircumstance when false positive or false negative resultscould lead to adverse medical, social or psychologicalconsequences. NG PCR NOT DETECTED Not Detect. [facility] Comment:A not detected test result does not exclude the possibilityof infection because test results can be affected byimproper specimen collection, concurrent antibiotic therapy,or the number of organisms in the specimen which may bebelow the sensitivity of the test. As with many diagnostictests, results from the Xpert CT/NG assay should beinterpreted in conjunction with other laboratory andclinical data available to the clinician.Xpert CT/NG performance has not been evaluated in patientsless than 14 years of age. The assay should not be used forthe evaluationof suspected sexual abuse or for other medico-legalindications. Additional testing is recommended in anycircumstance when false positive or false negative resultscould lead to adverse medical, social or psychologicalconsequences. Swab (Vaginal Swab) 06/14/2025 11:35 AM EDT 06/14/2025 5:47 PM EDT Jessica Alba MD LAB MICROBIOLOGY - GENERAL OR DERABLES Final Result [facility] [address] [place] [phone] * Pap Smear (10/19/2023 9:35 AM EST) Swab Cervix uteri structure / Unknown 10/19/2023 9:35 AM EST 10/20/2023 10:22 AM EST Narrative [facility] - 10/27/2023 11:38 AM EST ----- ------- Name: Radha Sheffield Age/Sex: 23/F : 2000 Unit#: [id number] Attend Dr: Jessica Alba MD Re10/19/23 Status: DEP REF Location: [facility] Disch: ----- ------- SPEC : [id number] RECD: 10/20/23-1021 STATUS: KENRICK GAVIRIA NUM: [id number] DEISY: 10/19/[address] [facility] [address]: Jessica Alba MD ENTERED: 10/20/23-0221 SP TYPE: Pap Smr OT DR: ORDERED: Pap Smear Interpretation Satisfactory for evaluation. Negative for intraepithelial lesion or malignancy. Clinical Information LMP: 09/28/2023 Previous PAP test: Unknown date/findings Material Received ThinPrep-Cervical ----- ------- Signed (signature on file) TRISTON Peters (ASCP) 10/27/23 1138 ----- ------- END OF REPORT us Jessica Alba MD LAB CYTOLOGY ORDERABLES Final Result [facility] [address] [place] [phone] * (ABNORMAL) Lipid Panel, Standard (12/01/2022 10:01 AM EST) Cholesterol, Total 156 <200 mg/dL [email or web address] HDL Cholesterol 45(L) > OR = 50 mg/dL [email or web address] Triglycerides 72 <150 mg/dL [email or web address] LDL Cholesterol 95 mg/dL (calc) [email or web address] Comment: Reference range: <100 Desirable range <100 mg/dL for primary prevention; <70 mg/dL for patients with CHD or diabetic patients with > or = 2 CHD risk factors. LDL-C is now calculated using the Doc calculation, which is a validated novel method providing better accuracy than the Friedewald equation in the estimation of LDL-C. Martínez WILHELM et al. KAILASH. 2013;310(19): 6125-5161 (http://education.[employer]/faq/XMN052) Chol/HDLC Ratio 3.5 <5.0 (calc) [email or web address] Non-HDL Cholesterol 111 <130 mg/dL (calc) [email or web address] Comment: For patients with diabetes plus 1 major ASCVD risk factor, treating to a non-HDL-C goal of <100 mg/dL (LDL-C of <70 mg/dL) is considered a therapeutic option. Blood Venous blood specimen / Unknown 12/01/2022 10:01 AM EST 12/01/2022 10:02 AM EST Narrative [facility] - 12/02/2022 12:53 AM EST FASTING:YES FASTING: YES Jessica Alba MD LAB BLOOD ORDERABLES Final Re sult [facility] [address], [place] [address] [email or web address] [address] [facility], ([address]) [place] [address] from Last 3 Months or Most Recently Relevant to Health Maintenance Insurance C3 Care Teams Control Clerk Relationship Specialty Start Date End Date Jessica Alba MD [address] [place] [phone] PCP - General Internal Medicine 12/01/22
--- OUTSIDE RECORDS SUMMARY | 2025-06-15 11:32 | XMS_ITS | Encounter Summary ---
Author Organization [employer] Address [address] [facility] [address] [place] [address] Care Team Providers Care Cake Knocker Name Role Phone Jessica Alba MD Primary Care Provider [phone] Encounter Details Date Type Department Care Team ([facility] st Contact Info) Description 06/15/2025 Results Follow-Up [facility] [address] [place] [address] Jessica Alba MD [address] [place] [address] Chlamydia/N. Gonorrhoeae RNA, TMA, Vaginal Social History Tobacco Use Types Packs/Day Years [...] documented as of this encounter Care Teams Cake Knocker Relationship Specialty Start Date End Date Jessica Alba MD [address] [place] [phone] PCP - General Internal Medicine 12/01/22 documented as of this encounter
== END 2025-06-14 11:36 | disposition home or self-care (01) ==
LOC: HO.CHCLNP 11:35
PROVIDERS: Visit Provider Pediatrics
DX: Z11.8 Encounter for screening for other infectious and parasitic diseases (principal); Z11.3 Encounter for screening for infections with a predominantly sexual mode of transmission
CPT/HCPCS: 87491; 87591